=== PATIENT | male | born 1955 | race Caucasian/White ===

== ENCOUNTER 2017-09-06 13:24 | Inpatient (IN) | payer OTHER ==
--- NOTE | 2017-09-06 14:25 | C.PDOC ---
History Of Present Illness 61-year-old male, presents to the emergency department with complaints of shortness of breath. Dr Conroy sent patient to Dr Ahumada for consult, who changed patients meds from Norvasc, to Lasix, Catapres and Minoxidil. Patient is consistent short of breath, that is associated with wheezing and lower extremity pitting edema. He denies chest pain, nausea/vomiting, headache or any other associated symptoms No other complaints at this time. Time Seen by Provider: 09/06/17 14:22 Chief Complaint (Nursing): Shortness Of Breath History Per: Patient History/Exam Limitations: no limitations Past Medical History Reviewed: Historical Data, Nursing Documentation, Vital Signs Vital Signs: Last Vital Signs Temp 98 F 09/06/17 18:11 Pulse 61 09/06/17 18:11 Resp 22 09/06/17 18:11 BP 174/75 H 09/06/17 18:11 Pulse Ox 99 09/06/17 18:11 - Medical History PMH: HTN, Hypercholesterolemia Family History: States: No Known Family Hx - Social History Hx Alcohol Use: Yes Hx Substance Use: No - Immunization History Hx Tetanus Toxoid Vaccination: No Hx Influenza Vaccination: Yes Hx Pneumococcal Vaccination: No Review Of Systems Constitutional: Negative for: Fever, Chills Cardiovascular: Negative for: Chest Pain Respiratory: Positive for: Shortness of Breath, Wheezing Gastrointestinal: Negative for: Vomiting Musculoskeletal: Negative for: Back Pain Neurological: Negative for: Weakness, Numbness, Headache, Dizziness Physical Exam - Physical Exam Appears: Non-toxic, No Acute Distress Skin: Normal Color, Warm, Dry, No Rash Head: Atraumatic, Normacephalic Eye(s): bilateral: PERRL Nose: Normal Oral Mucosa: Moist Lips: Normal Appearing Neck: Normal ROM Chest: Symmetrical Cardiovascular: Rhythm Regular, No Murmur Respiratory: Decreased Breath Sounds (B/L bases), No Accessory Muscle Use, Wheezing Extremity: Normal ROM, No Deformity, No Swelling Neurological/Psych: Oriented x3, Normal Speech ED Course And Treatment - Laboratory Results Result Diagrams: 09/06/17 14:50 09/06/17 14:50 Interpretation Of ECG: Junctional rhythm. Non-specific T wave abnormalities Rate From EC O2 Sat by Pulse Oximetry: 99 (RA) Pulse Ox Interpretation: Normal - Other Rad CXR X-Ray: Viewed By Me, Read By Radiologist Interpretation: Accession No. : [id number]. Patient Name / ID : MJ DOCKERY / [id number]. Exam Date : 09/06/2017 14:48:56 ( Approved ). Study Comment : Sex / Age : M / 61Y. Creator : Kayode Blas MD. Dictator : Motorcyles Final Inspector : Manager Emergency : Kayode Blas MD. Approver2 : Report Date : 09/06/2017 15:37:09. My Comment : . HISTORY: SOB. COMPARISON: No prior. TECHNIQUE: Chest PA and lateral. FINDINGS: LUNGS: The central pulmonary vasculature is increased. There is small to medium size right-sided effusion presumably associated with atelectasis and/or infiltrate. Minimal left basilar atelectasis and small left effusion. . Collectively findings are consistent with mild pulmonary edema/CHF. PLEURA: As above. . No pneumothorax apparent. CARDIOVASCULAR: Heart size is within range of normal. OSSEOUS STRUCTURES: No significant abnormalities. VISUALIZED UPPER ABDOMEN: Normal. OTHER FINDINGS: None. IMPRESSION: The central pulmonary vasculature is increased. There is small to medium size right-sided effusion presumably associated with atelectasis and/or infiltrate. Minimal left basilar atelectasis and small left effusion. . Collectively findings are consistent with mild pulmonary edema/CHF Progress Note: Bloodwork, EKG, Chest X-Ray and UA ordered and reviewed. case was d/w who accepted patient to [facility] for an admission. Disposition - Disposition Disposition: HOSPITALIZED Disposition Time: 16:17 Condition: FAIR - Clinical Impression Clinical Impression: CHF (congestive heart failure), Pulmonary edema - Scribe Statement The provider has reviewed the documentation as recorded by the Scribe (Edith Salazar) All medical record entries made by the Scribe were at my direction and personally dictated by me. I have reviewed the chart and agree that the record accurately reflects my personal performance of the history, physical exam, medical decision making, and the department course for this patient. I have also personally directed, reviewed, and agree with the discharge instructions and disposition. Decision To Admit - Pt Status Changed To: Hospital Disposition Of: Inpatient - Admit Certification Admit to Inpatient:: After my assessment, the patient will require hospitalization for at least two midnights. This is because of the severity of symptoms shown, intensity of services needed, and/or the medical risk in this patient being treated as an outpatient. - InPatient: Physician Admission Certification: I certify that this patient requires 2 or more midnights of care for the following reason:: Patient with new oncet CHF abd pulmonary edema will need cardiac work up and will need more than 2 days of hospitalization. - . Bed Request Type: Telemetry Patient Diagnosis: CHF (congestive heart failure), Pulmonary edema
[2017-09-06 14:56] LABS: BASO % 0.3 % (0.0-2.0); EOS # 0.3 K/uL (0.0-0.7); EOS % 5.1 % (0.0-4.0); HEMOGLOBIN 11.8 g/dL (12.0-18.0); LYMPH # 1.4 K/uL (1.0-4.3); LYMPH % 21.6 % (20.0-40.0); MEAN CELL VOLUME 80.9 fL (80.0-94.0); MEAN CORPUSCULAR HEMOGLOBIN 27.4 pg (27.0-31.0); MEAN CORPUSCULAR HGB CONC 33.9 g/dL (33.0-37.0); MEAN PLATELET VOLUME 11.3 fL (7.2-11.7); MONO # 0.7 K/uL (0.0-0.8); MONO % 10.6 % (0.0-10.0); NEUT # 3.9 K/uL (1.8-7.0); NEUT % 62.4 % (50.0-75.0); RBC 4.29 Mil/uL (4.40-5.90); RED CELL DISTRIBUTION WIDTH 15.8 % (11.5-14.5); WHITE BLOOD COUNT 6.3 K/uL (4.8-10.8)
[2017-09-06 15:04] LABS: INR 1.4; PROTHROMBIN TIME 14.8 SECONDS (9.7-12.2)
[2017-09-06 15:17] LABS: ALB/GLOB RATIO 0.9 (1.0-2.1); ALBUMIN 3.2 g/dL (3.5-5.0); ALT/SGPT 74 U/L (21-72); AST/SGOT 87 U/L (17-59); BLOOD UREA NITROGEN 18 mg/dL (9-20); CALCIUM 8.7 mg/dl (8.6-10.4); GFR AFRICAN-AMERICAN > 60; GFR NON-AFRICAN AMERICAN 56
[2017-09-06 15:27] LABS: SQUAMOUS EPITHIAL < 1 /hpf (0-5); URINE BACTERIA RARE (<OCC); URINE BILIRUBIN NEGATIVE (NEGATIVE); URINE BLOOD NEGATIVE (NEGATIVE); URINE CLARITY Clear (Clear); URINE COLOR Yellow (YELLOW); URINE GLUCOSE (UA) NORMAL (Normal); URINE LEUKOCYTE ESTERASE NEG Leu/uL (Negative); URINE PROTEIN 2+ mg/dL (NEGATIVE); URINE UROBILINOGEN NORMAL mg/dL (0.2-1.0)
[2017-09-06 15:31] LABS: CK-MB 4.91 ng/mL (0.0-3.38)
--- NOTE | 2017-09-06 15:38 | RAD ---
HISTORY: SOB COMPARISON: No prior. TECHNIQUE: Chest PA and lateral FINDINGS: LUNGS: The central pulmonary vasculature is increased. There is small to medium size right-sided effusion presumably associated with atelectasis and/or infiltrate. Minimal left basilar atelectasis and small left effusion. . Collectively findings are consistent with mild pulmonary edema/CHF PLEURA: As above. . No pneumothorax apparent. CARDIOVASCULAR: Heart size is within range of normal OSSEOUS STRUCTURES: No significant abnormalities. VISUALIZED UPPER ABDOMEN: Normal. OTHER FINDINGS: None. IMPRESSION: The central pulmonary vasculature is increased. There is small to medium size right-sided effusion presumably associated with atelectasis and/or infiltrate. Minimal left basilar atelectasis and small left effusion. . Collectively findings are consistent with mild pulmonary edema/CHF
--- NOTE | 2017-09-06 16:52 | CP.PCM.HP ---
History of Present Illness - History of Present Illness History of Present Illness: CC: SOB HPI 61-year-old male, presents to the emergency department with complaints of shortness of breath. Patient started having leg swelling. Dr. Conroy sent patient to Dr. Ahumada for consult who changed patients medications from norvasc to Minoxidil. For one week patient had leg swelling, patient was given furosemide and catapres. Patient states he does not have difficulty urinating. Patient states he can walk a few feet but then gets short of breath going to the bathroom. Patient states he called Dr. Ahumada to update medication but Patient is consistent short of breath, that is associated with wheezing and lower extremity pitting edema. He denies chest pain, nausea/vomiting, headache or any other associated symptoms No other complaints at this time. Patient was taking aspirin, plavix for his CVA. PMH: history of CVA (1 month ago in [place] in [place], [place]), DM, HTN surgical: none Social Hx: chews tobacco and stopped after his stroke 1 month ago, never smoked , social ETOH Allergies: NKDA PMD: Dr. Conroy full code son is the decision maker in case Patient cannot make decisions Present on Admission - Present on Admission Any Indicators Present on Admission: No History of DVT/PE: No History of Uncontrolled Diabetes: No Urinary Catheter: No Decubitus Ulcer Present: No Review of Systems - Review of Systems All systems: reviewed and no additional remarkable complaints except - Constitutional Constitutional: absent: Anorexia, Chills, Daytime Sleepiness - EENT Eyes: absent: Blind Spots, Blurred Vision, Change in Vision Past Patient History - Past Social History Smoking Status: Never Smoked - CARDIAC Hx Hypercholesterolemia: Yes Hx Hypertension: Yes - ENDOCRINE/METABOLIC Hx Diabetes Mellitus Type 2: Yes - PSYCHIATRIC Hx Substance Use: No - SURGICAL HISTORY Hx Surgeries: No Meds Allergies/Adverse Reactions: Allergies Allergy/AdvReac Type Severity Reaction Status Date / Time No Known Allergies Allergy Verified 09/06/17 13:46 Physical Exam - Constitutional Appears: Non-toxic, No Acute Distress - Head Exam Head Exam: ATRAUMATIC, NORMAL INSPECTION, NORMOCEPHALIC - Eye Exam Eye Exam: EOMI, Normal appearance - ENT Exam ENT Exam: Mucous Membranes Moist, Normal Oropharynx - Neck Exam Neck exam: Positive for: Full Rom. Negative for: Lymphadenopathy, Tenderness, Thyromegaly - Respiratory Exam Respiratory Exam: Decreased Breath Sounds (on the right), NORMAL BREATHING PATTERN. absent: Clear to Auscultation Bilateral, Rales - Cardiovascular Exam Cardiovascular Exam: REGULAR RHYTHM, +S1, +S2, Systolic Murmur. absent: Bradycardia, Tachycardia - GI/Abdominal Exam GI & Abdominal Exam: Normal Bowel Sounds, Soft. absent: Organomegaly, Rebound, Rigid, Tenderness - Extremities Exam Extremities exam: Positive for: full ROM, normal capillary refill, normal inspection, pedal edema (2+ pitting edema bilaterally ), pedal pulses present. Negative for: tenderness - Back Exam Back exam: FULL ROM, NORMAL INSPECTION - Neurological Exam Neurological exam: Alert, CN II-XII Intact, Normal Gait, Oriented x3 - Psychiatric Exam Psychiatric exam: Normal Affect, Normal Mood - Skin Skin Exam: Dry, Intact, Normal Color, Warm Results - Vital Signs Recent Vital Signs: Last Vital Signs Temp 98.1 F 09/06/17 13:43 Pulse 59 L 09/06/17 16:44 Resp 16 09/06/17 16:44 BP 192/84 H 09/06/17 16:44 Pulse Ox 99 09/06/17 16:44 - Labs Result Diagrams: 09/06/17 14:50 09/06/17 14:50 Labs: Laboratory Results - last 24 hr 09/06/17 09/06/17 09/06/17 14:50 14:50 14:50 WBC 6.3 RBC 4.29 L Hgb 11.8 L Hct 34.7 L MCV 80.9 MCH 27.4 MCHC 33.9 RDW 15.8 H Plt Count 216 MPV 11.3 Neut % (Auto) 62.4 Lymph % (Auto) 21.6 Gilchrist % (Auto) 10.6 H Eos % (Auto) 5.1 H Baso % (Auto) 0.3 Neut # (Auto) 3.9 Lymph # (Auto) 1.4 Gilchrist # (Auto) 0.7 Eos # (Auto) 0.3 Baso # (Auto) 0.0 PT 14.8 H INR 1.4 APTT 37 H D-Dimer, Quantitative 694 H Sodium 143 Potassium 3.9 Chloride 107 Carbon Dioxide 24 Anion Gap 15 BUN 18 Creatinine 1.3 Est GFR ( Amer) > 60 Est GFR (Non-Af Amer) 56 Random Glucose 97 Calcium 8.7 Total Bilirubin 0.4 AST 87 H ALT 74 H Alkaline Phosphatase 62 Total Creatine Kinase 490 H CK-MB (Mass) 4.91 H Troponin I 0.0540 Total Protein 6.7 Albumin 3.2 L Globulin 3.5 Albumin/Globulin Ratio 0.9 L Urine Color Urine Clarity Urine pH Ur Specific Statham Urine Protein Urine Glucose (UA) Urine Ketones Urine Blood Urine Nitrate Urine Bilirubin Urine Urobilinogen Ur Leukocyte Esterase Urine WBC (Auto) Urine RBC (Auto) Ur Squamous Epith Cells Urine Bacteria 09/06/17 15:18 WBC RBC Hgb Hct MCV MCH MCHC RDW Plt Count MPV Neut % (Auto) Lymph % (Auto) Gilchrist % (Auto) Eos % (Auto) Baso % (Auto) Neut # (Auto) Lymph # (Auto) Gilchrist # (Auto) Eos # (Auto) Baso # (Auto) PT INR APTT D-Dimer, Quantitative Sodium Potassium Chloride Carbon Dioxide Anion Gap BUN Creatinine Est GFR ( Amer) Est GFR (Non-Af Amer) Random Glucose Calcium Total Bilirubin AST ALT Alkaline Phosphatase Total Creatine Kinase CK-MB (Mass) Troponin I Total Protein Albumin Globulin Albumin/Globulin Ratio Urine Color Yellow Urine Clarity Clear Urine pH 5.0 Ur Specific Statham 1.006 Urine Protein 2+ H Urine Glucose (UA) Normal Urine Ketones Negative Urine Blood Negative Urine Nitrate Negative Urine Bilirubin Negative Urine Urobilinogen Normal Ur Leukocyte Esterase Neg Urine WBC (Auto) < 1 Urine RBC (Auto) < 1 Ur Squamous Epith Cells < 1 Urine Bacteria Rare Assessment & Plan - Assessment and Plan (Free Text) Assessment: 1) possible heart failure Lasix 40mg IV Q12H starting 6am 09/09/17 hold beta blockers due to acute nature f/u 2D echo head of bed 45 degrees daily weight strict input and output Troponin I at 09/06 2100 and 09/07 0300 Cardio Consult: Dr. Emery Galicia 2) uncontrolled HTN lasix 40mg IV Q12H starting 6am 09/07/17 lisinopril 100 mg PO QD 10 am clonidine 0.3 mg PO Q8H 09/06 starting 8am and 8pm Hydralazine 10 mg PO QID starting at 10pm 09/06 3) elevated D-dimer bilateral venous duplex LE CT angio Chest: no PE. Bilateral pleural effusions right larger than left. compressive atelectasis right lower lobe. 4) right sided medium pleural effusion monitor for now discontinue minoxidil IR Dr. Dennison for drainage 5) Elevated LFTs f/u hepatitis panel f/u HIV gen 4 6) anemia f/u occult stool f/u iron studies f/u peripheral smear f/u homocysteine f/u antiparietal cell ab f/u anti intrinsic factor ab f/u direct bilirubin f/u reticulocyte f/u methylmalonic acid f/u haptglobin f/u LDH 7) Diabetes hold PO home medication low dose ISS ACHS hypoglycemic protocol hgb A1c in AM 8) hx CVA about a month ago discussed with Dr. Marlon Mata DO PGY1 - Date & Time Date: 09/06/17 Time: 18:39
[2017-09-06] MEDS ORDERED: Iodixanol 320 MG/ML 100 ML BOTTLE IV ONE (17:08)
[2017-09-06] MEDS ORDERED: Dextrose 50% SYRINGE Inj (50 ml) IV PRN (17:58)
[2017-09-06] MEDS ORDERED: Glucagon Recombinant 1 mg Inj IM PRN (17:58)
--- NOTE | 2017-09-06 18:13 | CT ---
PROCEDURE: CT Chest with contrast (Pulmonary Angiogram) HISTORY: Elevated D- Dimer. SOB COMPARISON: September 06, 2017. Chest radiograph TECHNIQUE: Axial computed tomography images were obtained of the chest in the pulmonary arterial phase of enhancement. Coronal and sagittal reformatted images were created and reviewed. Intravenous contrast dose: 100 cc Visipaque 320 Mean Hounsfield unit values in the main pulmonary artery: 303.56 Radiation dose: Total exam DLP = 503.05 mGy-cm. This CT exam was performed using one or more of the following dose reduction techniques: Automated exposure control, adjustment of the mA and/or kV according to patient size, and/or use of iterative reconstruction technique. FINDINGS: PULMONARY ARTERIES: Unremarkable. No pulmonary embolism. AORTA: No acute findings. No thoracic aortic aneurysm. LUNGS: Unremarkable. No nodule, mass or pulmonary consolidation. PLEURAL SPACES: Right pleural effusion resulting in compressive atelectasis primarily affecting right lower lobe. Trace and partially loculated left pleural effusion. No suspicious pulmonary nodules or masses identified. HEART: Unremarkable. No cardiomegaly. No significant pericardial effusion. LYMPH NODES: No lymphadenopathy. BONES, CHEST WALL: Unremarkable. No fracture or destructive lesion OTHER FINDINGS: Unremarkable. IMPRESSION: Unremarkable CT pulmonary angiogram. No pulmonary embolus. Bilateral pleural effusions right larger than left. Compressive atelectasis right lower lobe.
[2017-09-06] MEDS: (Novolin R) Insulin Human Regular 100 units/ml vial SC SCH (21:48)
[2017-09-07 04:25] LABS: BASO # 0.1 K/uL (0.0-0.2); EOS # 0.3 K/uL (0.0-0.7); EOS % 6.1 % (0.0-4.0); HEMOGLOBIN 10.5 g/dL (12.0-18.0); LYMPH # 1.6 K/uL (1.0-4.3); LYMPH % 29.3 % (20.0-40.0); MEAN CELL VOLUME 80.6 fL (80.0-94.0); MEAN CORPUSCULAR HEMOGLOBIN 27.1 pg (27.0-31.0); MEAN CORPUSCULAR HGB CONC 33.6 g/dL (33.0-37.0); MEAN PLATELET VOLUME 11.3 fL (7.2-11.7); MONO # 0.7 K/uL (0.0-0.8); MONO % 12.5 % (0.0-10.0); NEUT # 2.9 K/uL (1.8-7.0); NEUT % 51.1 % (50.0-75.0); RBC 3.88 Mil/uL (4.40-5.90); RED CELL DISTRIBUTION WIDTH 15.2 % (11.5-14.5); WHITE BLOOD COUNT 5.6 K/uL (4.8-10.8)
[2017-09-07 04:43] LABS: IRON 41 ug/dL (49-181)
[2017-09-07 04:46] LABS: ALB/GLOB RATIO 0.9 (1.0-2.1); ALBUMIN 2.9 g/dL (3.5-5.0); BILIRUBIN,DIRECT 0.2 mg/dL (0.0-0.4); CALCIUM 8.6 mg/dl (8.6-10.4)
[2017-09-07 04:52] LABS: % IRON SATURATION 15 (20-55); TOTAL IRON BINDING CAPACITY 274 ug/dL (250-450)
[2017-09-07 04:56] LABS: TROPONIN I 0.066 ng/mL (0.00-0.120)
[2017-09-07 05:19] LABS: FERRITIN 50.4 ng/mL
[2017-09-07 05:23] LABS: HEPATITIS B SURFACE AG Negative (NEGATIVE)
[2017-09-07 05:29] LABS: HEPATITIS A IGM NEGATIVE (NEGATIVE); HEPATITIS B CORE AB NEGATIVE (NEGATIVE)
[2017-09-07 05:41] LABS: HEPATITIS C ANTIBODY NEGATIVE (NEGATIVE)
--- NOTE | 2017-09-07 07:07 | CP.PCM.PN ---
<Robyn Mata - Last Filed: 09/07/17 16:40> Subjective - Date & Time of Evaluation Date of Evaluation: 09/07/17 Time of Evaluation: 07:07 - Subjective Subjective: Progress note for Dr. Mason Patient seen and examined at bedside. Patient short of breath overnight, was given lasix. Patient states he feels much better and is aware he is going for thoracentesis. Patient had 600 cc of fluid removed during thoracentesis. Patient tolerated the procedure well. Patient continues to have high blood pressure. medicine team is currently adjusting medications. Objective - Vital Signs/Intake and Output Vital Signs (last 24 hours): Temp Pulse Resp BP Pulse Ox 98.0 F 74 20 175/85 H 98 09/07/17 00:00 09/07/17 00:31 09/07/17 00:00 09/07/17 06:10 09/07/17 00:00 Intake and Output: 09/07/17 09/07/17 06:59 18:59 Intake Total 850 Output Total 1000 Balance -150 - Medications Medications: Current Medications Aspirin (Aspirin Chewable) 81 mg PO DAILY [facility] Clonidine HCl (Catapres) 0.3 mg PO Q12H [facility] Last Admin: 09/06/17 19:24 Dose: 0.3 mg Clopidogrel Bisulfate (Plavix) 75 mg PO DAILY [facility] Dextrose (Dextrose 50% Inj) 0 ml IV STAT PRN; Protocol PRN Reason: Hypoglycemia Protocol Dextrose (Glutose 15) 0 gm PO ONCE PRN; Protocol PRN Reason: Hypoglycemia Protocol Furosemide (Lasix) 40 mg IVP Q12H [facility] Last Admin: 09/07/17 06:10 Dose: 40 mg Glucagon (Glucagen Diagnostic Kit) 0 mg IM STAT PRN; Protocol PRN Reason: Hypoglycemia Protocol Heparin Sodium (Porcine) (Heparin) 5,000 units SC Q8 [facility] Last Admin: 09/07/17 06:10 Dose: 5,000 units Hydralazine HCl (Apresoline) 10 mg PO QID [facility] Last Admin: 09/06/17 22:12 Dose: 10 mg Dextrose (Dextrose 5% In Water 1000 Ml) 1,000 mls @ 0 mls/hr IV .Q0M PRN; Protocol; Per Protocol PRN Reason: Hypoglycemia Protocol Insulin Human Regular (Novolin R) 0 unit SC ACHS [facility] PRN Reason: Protocol Last Admin: 09/06/17 21:48 Dose: Not Given Lisinopril (Zestril) 10 mg PO DAILY [facility] Last Admin: 09/06/17 16:43 Dose: 10 mg Rosuvastatin Calcium (Crestor) 5 mg PO HS [facility] Last Admin: 09/06/17 21:50 Dose: 5 mg - Labs Labs: 09/07/17 04:15 09/07/17 04:15 PT 14.8 SECONDS (9.7-12.2) H 09/06/17 14:50 INR 1.4 09/06/17 14:50 APTT 37 SECONDS (21-34) H 09/06/17 14:50 - Additional Findings Additional findings: - Constitutional Appears: Non-toxic, No Acute Distress - Head Exam Head Exam: ATRAUMATIC, NORMAL INSPECTION, NORMOCEPHALIC - Eye Exam Eye Exam: EOMI, Normal appearance - ENT Exam ENT Exam: Mucous Membranes Moist, Normal Oropharynx - Neck Exam Neck exam: Positive for: Full Rom. Negative for: Lymphadenopathy, Tenderness, Thyromegaly - Respiratory Exam Respiratory Exam: Decreased Breath Sounds (on the right), NORMAL BREATHING PATTERN. absent: Clear to Auscultation Bilateral, Rales - Cardiovascular Exam Cardiovascular Exam: REGULAR RHYTHM, +S1, +S2, Systolic Murmur. absent: Bradycardia, Tachycardia - GI/Abdominal Exam GI & Abdominal Exam: Normal Bowel Sounds, Soft. absent: Organomegaly, Rebound, Rigid, Tenderness - Extremities Exam Extremities exam: Positive for: full ROM, normal capillary refill, normal inspection, pedal edema (2+ pitting edema bilaterally ), pedal pulses present. Negative for: tenderness - Back Exam Back exam: FULL ROM, NORMAL INSPECTION - Neurological Exam Neurological exam: Alert, CN II-XII Intact, Normal Gait, Oriented x3 - Psychiatric Exam Psychiatric exam: Normal Affect, Normal Mood - Skin Skin Exam: Dry, Intact, Normal Color, Warm Assessment and Plan - Assessment and Plan (Free Text) Assessment: 1) possible heart failure Lasix 40mg IV Q12H starting 6am 09/09/17 hold beta blockers due to acute nature f/u 2D echo head of bed 45 degrees daily weight strict input and output Troponin I at 09/06 2100 and 09/07 0300 Cardio Consult: Dr. Emery Galicia 2) uncontrolled HTN lasix 40mg IV Q12H starting 6am 09/07/17 lisinopril 10 mg PO QD 10 am clonidine 0.3 mg PO Q8H 09/06 starting 8am and 8pm Hydralazine 50 mg PO TID 09/08 3) elevated D-dimer bilateral venous duplex LE CT angio Chest: no PE. Bilateral pleural effusions right larger than left. compressive atelectasis right lower lobe. 4) right sided medium pleural effusion monitor for now discontinue minoxidil IR Dr. Dennison for drainage 600cc drained. specimens sent for cytology, total protein and LDH 5) Elevated LFTs f/u hepatitis panel f/u HIV gen 4 6) anemia f/u occult stool f/u iron studies f/u peripheral smear f/u homocysteine f/u antiparietal cell ab f/u anti intrinsic factor ab f/u direct bilirubin f/u reticulocyte f/u methylmalonic acid f/u haptglobin f/u LDH patient placed on feosol 325 mg 09/07 7) Diabetes, controlled hold PO home medication low dose ISS ACHS hypoglycemic protocol hgb A1c in AM 7.0 8) hx CVA about a month ago plavix asa 81 mg POQD prophylaxis scds Robyn Mata DO PGY1 discussed with Dr. Marlon Mata DO PGY1 <Riley Mason - Last Filed: 09/07/17 19:58> Objective - Vital Signs/Intake and Output Vital Signs (last 24 hours): Temp Pulse Resp BP Pulse Ox 97.9 F 52 L 22 178/71 H 99 09/07/17 16:00 09/07/17 16:00 09/07/17 16:00 09/07/17 19:17 09/07/17 16:00 Intake and Output: 09/07/17 09/08/17 18:59 06:59 Intake Total 300 Balance 300 - Medications Medications: Current Medications Aspirin (Aspirin Chewable) 81 mg PO DAILY [facility] Clonidine HCl (Catapres) 0.3 mg PO TID [facility] Last Admin: 09/07/17 18:55 Dose: 0.3 mg Clopidogrel Bisulfate (Plavix) 75 mg PO DAILY [facility] Dextrose (Dextrose 50% Inj) 0 ml IV STAT PRN; Protocol PRN Reason: Hypoglycemia Protocol Dextrose (Glutose 15) 0 gm PO ONCE PRN; Protocol PRN Reason: Hypoglycemia Protocol Ferrous Sulfate (Feosol) 325 mg PO DAILY [facility] Last Admin: 09/07/17 09:48 Dose: 325 mg Furosemide (Lasix) 40 mg IVP Q12H [facility] Last Admin: 09/07/17 19:17 Dose: 40 mg Glucagon (Glucagen Diagnostic Kit) 0 mg IM STAT PRN; Protocol PRN Reason: Hypoglycemia Protocol Heparin Sodium (Porcine) (Heparin) 5,000 units SC Q8 [facility] Last Admin: 09/07/17 14:11 Dose: Not Given Hydralazine HCl (Apresoline) 50 mg PO TID [facility] Last Admin: 09/07/17 18:55 Dose: 50 mg Dextrose (Dextrose 5% In Water 1000 Ml) 1,000 mls @ 0 mls/hr IV .Q0M PRN; Protocol; Per Protocol PRN Reason: Hypoglycemia Protocol Insulin Human Regular (Novolin R) 0 unit SC ACHS [facility] PRN Reason: Protocol Last Admin: 09/07/17 18:57 Dose: 2 unit Labetalol HCl (Trandate) 100 mg PO BID [facility] Last Admin: 09/07/17 18:56 Dose: 100 mg Lisinopril (Zestril) 10 mg PO DAILY [facility] Last Admin: 09/07/17 09:48 Dose: 10 mg Rosuvastatin Calcium (Crestor) 5 mg PO HS [facility] Last Admin: 09/06/17 21:50 Dose: 5 mg - Labs Labs: 09/07/17 04:15 09/07/17 04:15 PT 14.8 SECONDS (9.7-12.2) H 09/06/17 14:50 INR 1.4 09/06/17 14:50 APTT 37 SECONDS (21-34) H 09/06/17 14:50 Attending/Attestation - Attestation I have personally seen and examined this patient.: Yes I have fully participated in the care of the patient.: Yes I have reviewed all pertinent clinical information, including history, physical exam and plan: Yes Notes (Text): 09/07/17 19:54 Patient was seen and examined at 9 AM Exam, assessment and plan were gone over with the resident. F/U 2D Echocardiogram Venous Doppler of LE are negative for DVTs. Therefore will add SCDs. F/U Pleural Fluid studies S/P Thoracentesis of Right Pleural Fluid Ferrous Sulfate 325 mg PO 1x/day added for low Iron. Patient will need outpatient Colonoscopy. F/U VMA 24 hour urine collection for workup of the still uncontrolled HTN. Nephrology Dr. Ahumada added Lobetolol 100 mg PO 2x/day and has increased Hydralazine to 50 mg PO TID. ASA 81 mg PO 1x/day and Plavix 75 mg PO 1x/day (on board for the history of CVA ) will be restarted 09/07/17 after being held today for the Thoracentesis. Riley Mason D.O.
[2017-09-07] MEDS: (Novolin R) Insulin Human Regular 100 units/ml vial SC SCH ×4 (07:49→21:28)
[2017-09-07] MEDS ORDERED: Potassium Chloride 20 mEq ER Tab PO SCH (10:00)
--- NOTE | 2017-09-07 12:05 | VASCLAB ---
PROCEDURE: Lower Extremity Venous Duplex Exam. HISTORY: Elevated D - Dimer. Edema of legs PRIORS: None. TECHNIQUE: Bilateral common femoral, femoral, popliteal and posterior tibial, peroneal and great saphenous veins were evaluated. Flow was assessed with color Doppler, compressibility, assessment of phasic flow and augmentation response. Report prepared by SYLVIA Snyder, RVT FINDINGS: RIGHT: 1. Common Femoral Vein: 1.1. Compressibility - Fully compressible: Thrombus - None : Flow - Phasic: Augmentation -Normal: Reflux - None. 2. Femoral Vein: 2.1. Compressibility - Fully compressible: Thrombus - None : Flow - Phasic: Augmentation -Normal: Reflux - None. 3. Popliteal Vein: 3.1. Compressibility - Fully compressible: Thrombus - None : Flow - Phasic: Augmentation -Normal: Reflux - None. 4. Posterior Tibial Vein: 4.1. Compressibility - Fully compressible: Thrombus - None: Flow - Phasic: Augmentation -Normal: Reflux - None. 5. Peroneal Vein: 5.1. Compressibility - Fully compressible: Thrombus - None: Flow - Phasic: Augmentation -Normal: Reflux - None. 6. Great Saphenous Vein: 6.1. Compressibility - Fully compressible: Thrombus - None: Flow - Phasic: Augmentation - Normal: Reflux - None. LEFT: 1. Common Femoral Vein: 1.1. Compressibility - Fully compressible: Thrombus - None: Flow - Phasic: Augmentation -Normal: Reflux - None. 2. Femoral Vein: 2.1. Compressibility - Fully compressible: Thrombus - None: Flow - Phasic: Augmentation -Normal: Reflux - None. 3. Popliteal Vein: 3.1. Compressibility - Fully compressible: Thrombus - None : Flow - Phasic: Augmentation -Normal: Reflux - None. 4. Posterior Tibial Vein: 4.1. Compressibility - Fully compressible: Thrombus - None: Flow - Phasic: Augmentation -Normal: Reflux - None. 5. Peroneal Vein: 5.1. Compressibility - Fully compressible: Thrombus - None: Flow - Phasic: Augmentation -Normal: Reflux - None. 6. Great Saphenous Vein: 6.1. Compressibility - Fully compressible: Thrombus - None: Flow - Phasic: Augmentation - Normal: Reflux - None. OTHER FINDINGS: Right: None significant. Left: None significant. IMPRESSION: Right: No evidence of deep or superficial vein thrombosis of the right lower extremity. Normal valve function noted of the right side. Left: No evidence of deep or superficial vein thrombosis of the left lower extremity. Normal valve function noted of the left side.
--- NOTE | 2017-09-07 14:52 | CP.PCM.CON ---
History of Present Illness - History of Present Illness History of Present Illness: 61-year-old male, presents to the emergency department with complaints of shortness of breath. Patient started having leg swelling. Recently has had uncontrolled HTN and minoxidil added to regimen.Workup for uncontrolled HTN initiated, results pending.. Has had increased leg swelling, patient was given furosemide and catapres. Patient states he does not have difficulty urinating. Patient states he can walk a few feet but then gets short of breath going to the bathroom. Patient states he called Dr. Ahumada for persistent short of breath , that is associated with wheezing and lower extremity pitting edema. He denies chest pain, nausea/vomiting, headache or any other associated symptoms No other complaints at this time. Advised to go to ED. Patient was taking aspirin, plavix for his CVA. PMH: history of CVA (1 month ago in [place] in [place], [place]), DM, HTN surgical: none Social Hx: chews tobacco and stopped after his stroke 1 month ago, never smoked , social ETOH Allergies: NKDA Review of Systems - Constitutional Constitutional: Lethargy, Weight Gain, Weakness - EENT Eyes: absent: As Per HPI, Blind Spots, Blurred Vision, Change in Vision, Decreased Night Vision, Diplopia, Discharge, Dry Eye, Exophthalmos, Floaters, Irritation, Itchy Eyes, Loss of Peripheral Vision, Pain, Photophobia, Requires Corrective Lenses, Sees Flashes, Spots in Vision, Tunnel Vision, Other Visual Disturbances, Loss of Vision, Other Ears: absent: As Per HPI, Decreased Hearing, Ear Discharge, Ear Pain, Tinnitus, Abnormal Hearing, Disequilibrium, Dizziness, Other Nose/Mouth/Throat: absent: As Per HPI, Epistaxis, Nasal Congestion, Nasal Discharge, Nasal Obstruction, Nasal Trauma, Nose Pain, Post Nasal Drip, Sinus Pain, Sinus Pressure, Bleeding Gums, Change in Voice, Dental Pain, Dry Mouth, Dysphagia, Halitosis, Hoarsness, Lip Swelling, Mouth Lesions, Mouth Pain, Odynophagia, Sore Throat, Throat Swelling, Tongue Swelling, Facial Pain, Neck Pain, Neck Mass, Other - Cardiovascular Cardiovascular: Dyspnea on Exertion, Lightheadedness, Pedal Edema - Respiratory Respiratory: Cough, Dyspnea on Exertion - Gastrointestinal Gastrointestinal: Dyspepsia, Nausea - Musculoskeletal Musculoskeletal: Muscle Cramps, Myalgias - Neurological Neurological: Weakness Past Patient History - Past Medical History & Family History Past Medical History?: Yes Past Family History: Reviewed and not pertinent - Past Social History Smoking Status: Never Smoked Chewing Tobacco Use: No Cigar Use: No Alcohol: None Drugs: Denies Home Situation {Lives}: With Family - CARDIAC Hx Hypercholesterolemia: Yes Hx Hypertension: Yes - PULMONARY Hx Respiratory Disorders: No - NEUROLOGICAL Hx Neurological Disorder: Yes HX Cerebrovascular Accident: Yes (07/26/17) - HEENT Hx HEENT Problems: No - RENAL Hx Chronic Kidney Disease: No - ENDOCRINE/METABOLIC Hx Diabetes Mellitus Type 2: Yes - HEMATOLOGICAL/ONCOLOGICAL Hx Blood Disorders: No - INTEGUMENTARY Hx Dermatological Problems: No - MUSCULOSKELETAL/RHEUMATOLOGICAL Hx Musculoskeletal Disorders: Yes Hx Falls: Yes - GASTROINTESTINAL Hx Gastrointestinal Disorders: No - GENITOURINARY/GYNECOLOGICAL Hx Genitourinary Disorders: No - PSYCHIATRIC Hx Substance Use: No - SURGICAL HISTORY Hx Surgeries: No - ANESTHESIA Hx Anesthesia: No Hx Anesthesia Reactions: No Hx Malignant Hyperthermia: No Has any member of the family had a problem w/ anesthesia?: No Meds Allergies/Adverse Reactions: Allergies Allergy/AdvReac Type Severity Reaction Status Date / Time No Known Allergies Allergy Verified 09/06/17 13:46 - Medications Medications: Current Medications Clonidine HCl (Catapres) 0.3 mg PO Q12H [facility] Last Admin: 09/07/17 07:53 Dose: 0.3 mg Dextrose (Dextrose 50% Inj) 0 ml IV STAT PRN; Protocol PRN Reason: Hypoglycemia Protocol Dextrose (Glutose 15) 0 gm PO ONCE PRN; Protocol PRN Reason: Hypoglycemia Protocol Ferrous Sulfate (Feosol) 325 mg PO DAILY [facility] Last Admin: 09/07/17 09:48 Dose: 325 mg Furosemide (Lasix) 40 mg IVP Q12H [facility] Last Admin: 09/07/17 06:10 Dose: 40 mg Glucagon (Glucagen Diagnostic Kit) 0 mg IM STAT PRN; Protocol PRN Reason: Hypoglycemia Protocol Heparin Sodium (Porcine) (Heparin) 5,000 units SC Q8 [facility] Last Admin: 09/07/17 14:11 Dose: Not Given Hydralazine HCl (Apresoline) 25 mg PO QID [facility] Last Admin: 09/07/17 14:05 Dose: 25 mg Dextrose (Dextrose 5% In Water 1000 Ml) 1,000 mls @ 0 mls/hr IV .Q0M PRN; Protocol; Per Protocol PRN Reason: Hypoglycemia Protocol Insulin Human Regular (Novolin R) 0 unit SC ACHS [facility] PRN Reason: Protocol Last Admin: 09/07/17 12:01 Dose: 2 unit Lisinopril (Zestril) 10 mg PO DAILY [facility] Last Admin: 09/07/17 09:48 Dose: 10 mg Potassium Chloride (K-Dur 20 Meq Er Tab) 40 meq PO DAILY [facility] Last Admin: 09/07/17 09:48 Dose: 40 meq Rosuvastatin Calcium (Crestor) 5 mg PO HS [facility] Last Admin: 09/06/17 21:50 Dose: 5 mg Physical Exam - Constitutional Appears: No Acute Distress, Chronically Ill - Head Exam Head Exam: ATRAUMATIC, NORMAL INSPECTION - Eye Exam Eye Exam: EOMI, Normal appearance - Neck Exam Neck exam: Positive for: Normal Inspection. Negative for: Tenderness - Respiratory Exam Respiratory Exam: Decreased Breath Sounds, NORMAL BREATHING PATTERN - Cardiovascular Exam Cardiovascular Exam: REGULAR RHYTHM, +S1 - GI/Abdominal Exam GI & Abdominal Exam: Soft. absent: Tenderness - Extremities Exam Extremities exam: Positive for: pedal edema, tenderness - Neurological Exam Neurological exam: CN II-XII Intact, Oriented x3 - Skin Skin Exam: Dry, Warm Results - Vital Signs Recent Vital Signs: Last Vital Signs Temp 97.5 F L 09/07/17 07:05 Pulse 57 L 09/07/17 14:06 Resp 20 09/07/17 07:05 BP 182/87 H 09/07/17 14:06 Pulse Ox 98 09/07/17 07:05 - Labs Result Diagrams: 09/07/17 04:15 09/07/17 04:15 Labs: Laboratory Results - last 24 hr 09/06/17 09/06/17 09/06/17 14:50 14:50 14:50 WBC 6.3 RBC 4.29 L Hgb 11.8 L Hct 34.7 L MCV 80.9 MCH 27.4 MCHC 33.9 RDW 15.8 H Plt Count 216 MPV 11.3 Neut % (Auto) 62.4 Lymph % (Auto) 21.6 [place] % (Auto) 10.6 H Eos % (Auto) 5.1 H Baso % (Auto) 0.3 Neut # (Auto) 3.9 Lymph # (Auto) 1.4 [place] # (Auto) 0.7 Eos # (Auto) 0.3 Baso # (Auto) 0.0 Retic Count Haptoglobin PT 14.8 H INR 1.4 APTT 37 H D-Dimer, Quantitative 694 H Sodium 143 Potassium 3.9 Chloride 107 Carbon Dioxide 24 Anion Gap 15 BUN 18 Creatinine 1.3 Est GFR ( Amer) > 60 Est GFR (Non-Af Amer) 56 POC Glucose (mg/dL) Random Glucose 97 Hemoglobin A1c Calcium 8.7 Phosphorus Magnesium Iron TIBC % Saturation Ferritin Total Bilirubin 0.4 Direct Bilirubin AST 87 H ALT 74 H Alkaline Phosphatase 62 Lactate Dehydrogenase Total Creatine Kinase 490 H CK-MB (Mass) 4.91 H Troponin I 0.0540 NT-Pro-B Natriuret Pep Total Protein 6.7 Albumin 3.2 L Globulin 3.5 Albumin/Globulin Ratio 0.9 L Triglycerides Cholesterol LDL Cholesterol Direct HDL Cholesterol Homocysteine Urine Color Urine Clarity Urine pH Ur Specific [place] Urine Protein Urine Glucose (UA) Urine Ketones Urine Blood Urine Nitrate Urine Bilirubin Urine Urobilinogen Ur Leukocyte Esterase Urine WBC (Auto) Urine RBC (Auto) Ur Squamous Epith Cells Urine Bacteria Stool Occult Blood Hepatitis A IgM Ab Hep Bs Antigen Hep B Core IgM Ab Hepatitis C Antibody 09/06/17 09/06/17 09/06/17 15:18 19:49 20:50 WBC RBC Hgb Hct MCV MCH MCHC RDW Plt Count MPV Neut % (Auto) Lymph % (Auto) [place] % (Auto) Eos % (Auto) Baso % (Auto) Neut # (Auto) Lymph # (Auto) [place] # (Auto) Eos # (Auto) Baso # (Auto) Retic Count Haptoglobin PT INR APTT D-Dimer, Quantitative Sodium Potassium Chloride Carbon Dioxide Anion Gap BUN Creatinine Est GFR ( Amer) Est GFR (Non-Af Amer) POC Glucose (mg/dL) Random Glucose Hemoglobin A1c Calcium Phosphorus Magnesium Iron TIBC % Saturation Ferritin Total Bilirubin Direct Bilirubin AST ALT Alkaline Phosphatase Lactate Dehydrogenase Total Creatine Kinase CK-MB (Mass) Troponin I 0.0700 NT-Pro-B Natriuret Pep Total Protein Albumin Globulin Albumin/Globulin Ratio Triglycerides Cholesterol LDL Cholesterol Direct HDL Cholesterol Homocysteine Urine Color Yellow Urine Clarity Clear Urine pH 5.0 Ur Specific [place] 1.006 Urine Protein 2+ H Urine Glucose (UA) Normal Urine Ketones Negative Urine Blood Negative Urine Nitrate Negative Urine Bilirubin Negative Urine Urobilinogen Normal Ur Leukocyte Esterase Neg Urine WBC (Auto) < 1 Urine RBC (Auto) < 1 Ur Squamous Epith Cells < 1 Urine Bacteria Rare Stool Occult Blood Negative Hepatitis A IgM Ab Hep Bs Antigen Hep B Core IgM Ab Hepatitis C Antibody 09/06/17 09/06/17 09/07/17 20:50 21:24 04:00 WBC RBC Hgb Hct MCV MCH MCHC RDW Plt Count MPV Neut % (Auto) Lymph % (Auto) [place] % (Auto) Eos % (Auto) Baso % (Auto) Neut # (Auto) Lymph # (Auto) Aurora # (Auto) Eos # (Auto) Baso # (Auto) Retic Count Haptoglobin PT INR APTT D-Dimer, Quantitative Sodium Potassium Chloride Carbon Dioxide Anion Gap BUN Creatinine Est GFR ( Amer) Est GFR (Non-Af Amer) POC Glucose (mg/dL) 137 H Random Glucose Hemoglobin A1c Calcium Phosphorus Magnesium Iron TIBC % Saturation Ferritin Total Bilirubin Direct Bilirubin AST ALT Alkaline Phosphatase Lactate Dehydrogenase Total Creatine Kinase CK-MB (Mass) Troponin I NT-Pro-B Natriuret Pep 2380 H Total Protein Albumin Globulin Albumin/Globulin Ratio Triglycerides Cholesterol LDL Cholesterol Direct HDL Cholesterol Homocysteine Urine Color Urine Clarity Urine pH Ur Specific [place] Urine Protein Urine Glucose (UA) Urine Ketones Urine Blood Urine Nitrate Urine Bilirubin Urine Urobilinogen Ur Leukocyte Esterase Urine WBC (Auto) Urine RBC (Auto) Ur Squamous Epith Cells Urine Bacteria Stool Occult Blood Hepatitis A IgM Ab Negative Hep Bs Antigen Negative Hep B Core IgM Ab Negative Hepatitis C Antibody Negative 09/07/17 09/07/17 09/07/17 04:00 04:15 04:15 WBC RBC Hgb Hct MCV MCH MCHC RDW Plt Count MPV Neut % (Auto) Lymph % (Auto) Aurora % (Auto) Eos % (Auto) Baso % (Auto) Neut # (Auto) Lymph # (Auto) [place] # (Auto) Eos # (Auto) Baso # (Auto) Retic Count Haptoglobin 100.0 PT INR APTT D-Dimer, Quantitative Sodium 143 Potassium 3.4 L Chloride 105 Carbon Dioxide 27 Anion Gap 14 BUN 16 Creatinine 1.5 Est GFR ( Amer) 57 Est GFR (Non-Af Amer) 47 POC Glucose (mg/dL) Random Glucose 119 H Hemoglobin A1c Calcium 8.6 Phosphorus 4.6 H Magnesium 1.8 Iron 41 L TIBC 274 % Saturation 15 L Ferritin 50.4 Total Bilirubin 0.4 Direct Bilirubin 0.2 AST 68 H D ALT 78 H Alkaline Phosphatase 60 Lactate Dehydrogenase 640 H Total Creatine Kinase CK-MB (Mass) Troponin I 0.0660 NT-Pro-B Natriuret Pep Total Protein 6.0 L Albumin 2.9 L Globulin 3.1 Albumin/Globulin Ratio 0.9 L Triglycerides 98 Cholesterol 107 LDL Cholesterol Direct 54 HDL Cholesterol 29 L Homocysteine 9.4 Urine Color Urine Clarity Urine pH Ur Specific [place] Urine Protein Urine Glucose (UA) Urine Ketones Urine Blood Urine Nitrate Urine Bilirubin Urine Urobilinogen Ur Leukocyte Esterase Urine WBC (Auto) Urine RBC (Auto) Ur Squamous Epith Cells Urine Bacteria Stool Occult Blood Hepatitis A IgM Ab Hep Bs Antigen Hep B Core IgM Ab Hepatitis C Antibody 09/07/17 09/07/17 09/07/17 04:15 04:36 06:39 WBC 5.6 RBC 3.88 L Hgb 10.5 L Hct 31.3 L MCV 80.6 MCH 27.1 MCHC 33.6 RDW 15.2 H Plt Count 194 MPV 11.3 Neut % (Auto) 51.1 Lymph % (Auto) 29.3 Aurora % (Auto) 12.5 H Eos % (Auto) 6.1 H Baso % (Auto) 1.0 Neut # (Auto) 2.9 Lymph # (Auto) 1.6 [place] # (Auto) 0.7 Eos # (Auto) 0.3 Baso # (Auto) 0.1 Retic Count 1.3 Haptoglobin PT INR APTT D-Dimer, Quantitative Sodium Potassium Chloride Carbon Dioxide Anion Gap BUN Creatinine Est GFR ( Amer) Est GFR (Non-Af Amer) POC Glucose (mg/dL) 135 H Random Glucose Hemoglobin A1c 7.0 H Calcium Phosphorus Magnesium Iron TIBC % Saturation Ferritin Total Bilirubin Direct Bilirubin AST ALT Alkaline Phosphatase Lactate Dehydrogenase Total Creatine Kinase CK-MB (Mass) Troponin I NT-Pro-B Natriuret Pep Total Protein Albumin Globulin Albumin/Globulin Ratio Triglycerides Cholesterol LDL Cholesterol Direct HDL Cholesterol Homocysteine Urine Color Urine Clarity Urine pH Ur Specific [place] Urine Protein Urine Glucose (UA) Urine Ketones Urine Blood Urine Nitrate Urine Bilirubin Urine Urobilinogen Ur Leukocyte Esterase Urine WBC (Auto) Urine RBC (Auto) Ur Squamous Epith Cells Urine Bacteria Stool Occult Blood Hepatitis A IgM Ab Hep Bs Antigen Hep B Core IgM Ab Hepatitis C Antibody Assessment & Plan (1) Pleural effusion Status: Acute (2) CKD (chronic kidney disease) stage 3, GFR 30-59 ml/min Status: Acute (3) Hypertensive chronic kidney disease with stage 1 through stage 4 chronic kidney disease, or unspecified chronic kidney disease Status: Acute (4) CHF (congestive heart failure) Status: Acute - Assessment and Plan (Free Text) Plan: Recent secondary HTN workup initiated and pending as outpt HTN remains uncontrolled- needs adjustments in meds Failed minoxidil as effusions might have been worsened by this. Will pursue renal workup. Had recent CVA- HTN uncontrolled for significant period of time.
--- NOTE | 2017-09-07 15:15 | PCM.SURG1 ---
Surgeon's Initial Post Op Note - Surgeon's Notes Surgeon: Lorenza Rowan Senior Case Manager: NONE Type of Anesthesia: Local Pre-Operative Diagnosis: Right pleural effusion Operative Findings: US showed small right effusion Post-Operative Diagnosis: Right pleural effusion Operation Performed: US guided right thoracentesis Specimen/Specimens Removed: 600 cc of yellow fluid Estimated Blood Loss: EBL {In ML}: 0 Blood Products Given: N/A Drains Used: No Drains Post-Op Condition: Fair Date of Surgery/Procedure: 09/07/17 Time of Surgery/Procedure: 14:25
[2017-09-07 15:18] LABS: BODY FLUID TYPE PLEURAL
[2017-09-07 15:58] LABS: BF GROSS APPEARANCE SL CLOUDY (CLEAR); BODY FLUID MONO/MACROPHAGE 3 % (0-0)
[2017-09-07 15:59] LABS: BODY FLUID TOTAL COUNT 100 (0-0)
[2017-09-08 00:32] VITALS: RESP 20
--- NOTE | 2017-09-08 02:37 | CON ---
DATE: CARDIOLOGY CONSULT Requested by the hospitalist group. LOCATION: Room 2. HISTORY OF PRESENT ILLNESS: I was requested to see this 61 years old Citizen Of [place] male with a long history of hypertension and diabetes who was admitted yesterday with significant increasing shortness of breath to mild exertion as well as dependent edema of both lower extremities. He was immediately evaluated in the emergency room. He was found to be in moderate congestive heart failure with moderate right-sided effusion as well as small left pleural effusion, and given intravenous furosemide, and he began to diuresis quite well and he began to improve quite rapidly. At this point in time, 24 hours later, he feels much better. He is eating lunch, and the son, Edgar, who is at the bedside helping me although the patient himself speaks Turkmen quite well. This nice gentleman was recently hospitalized in [facility] about a month ago after suffering a right cerebral infarct with left hemiparesis, and he is undergoing physical therapy as an outpatient now. He actually was also referred by his primary physician, Dr. Anne referred him to Dr. Ahumada, a traffic i manager, who saw him last about 10 days ago in his office due to severely elevated blood pressures. He adjusted some of his medications. Actually, I just happened to see Dr. Ahumada a few minutes ago and told him that I saw this patient as he was on his way to see him also. REVIEW OF SYSTEMS: From the cardiopulmonary view point includes the shortness of breath with mild exertion over the last several days or after a week or so to the point that he actually while taking the clothing out of the washing machine apparently that is what the son told me, he was significantly short of breath, and also he noticed significant edema of both lower extremities. The patient actually told me that he had been feeling better over the last several weeks, and he had been eating a lot more. I presumed that there was some dietary indiscretion or without realizing it, he was eating more salty foods than he should have. Rest of the review of systems is otherwise negative. PHYSICAL EXAMINATION: GENERAL: Reveals a middle-aged senior Citizen [place] male, very pleasant, cooperative, moderate obese in no distress whatsoever. He was able to move all extremities quite well in my opinion. VITAL SIGNS: Blood pressure on arrival this morning was around 149/64; however later on this afternoon, it jumped to 218/90. Obviously, some of his antihypertensive medications have been adjusted as we speak. Respiratory rate is basically unremarkable. Actually, he was eating lunch quite well. SKIN: Shows some mild edema of both lower extremities; however, he claims it is less than in the last few days. HEENT: Head, ears, nose, and throat, nothing spectacular, jugular vein especially to the right side, looks a little of the upper limits at 45 degrees in dimension. LUNGS: Lung donald with decreased breath sounds at the base of the right a lot more than the left, and I was just told that he is going to go and have a drainage of this "fluid" in his chest, I presume by the Interventional Radiology. CARDIOVASCULAR EXAM: Jugular veins are in upper limits. Heart sounds are somewhat distant. There is a systolic murmur at the left sternal border, I cannot totally identify where it is coming from, about grade 2/6. ABDOMEN: Obese. No gross organomegaly or detectable organomegaly. TOE SEWER EXAM: Alert, oriented, in my opinion moving arms and legs equally. COMPLEMENTARY DATA: Includes a CBC with borderline anemia of 10.5 hemoglobin, hematocrit around 31. Potassium this morning slightly low at 3.4, blood sugar mildly elevated. Troponins negative. Total CK mildly elevated, presumably due to all his injections, etc. Mildly elevated liver enzymes due to congested liver. Chest x-ray showing some cardiomegaly, pulmonary congestion, and bilateral pleural effusion right much bigger than left. EKG is showing sinus rhythm, low voltage in leads, presumably due to the edema, etc, and pleural effusion, no acute changes. IMPRESSION: Decompensated heart failure secondary to uncontrolled hypertensive cardiovascular disease. CONCLUSION: I had a very long conversation with the patient and the son, Edgar, and told him, this basically 99% of the time happens due to dietary indiscretion, etc, as well as uncontrolled hypertension as it is now. Once the situation is under control with the use of diuretics, GUSTAVO inhibitors as well as clonidine, hydralazine, etc that has been used now, he should follow proper dietary guidelines and check his weight daily at home. Actually, I mentioned that his job was to check his weight everyday at that same time with plus or minus same clothing and if he sees any significant gain more than 5 pounds, to notify his physician immediately. Some the investigations are pending, and I personally discussed the situation with Dr. Brandyn, the traffic i manager. Emery Galicia MD cc: Hospitalist Group [email or web address]
--- NOTE | 2017-09-08 07:50 | CP.PCM.PN ---
Subjective - Date & Time of Evaluation Date of Evaluation: 09/08/17 Time of Evaluation: 07:48 - Subjective Subjective: Progress note for Dr. Mason Patient seen and examined at bedside. Patient states he's doing well. No acute events overnight. Patient denies difficulty breathing today. Patient denies fever, chills, shortness of breath. Objective - Vital Signs/Intake and Output Vital Signs (last 24 hours): Temp Pulse Resp BP Pulse Ox 97.5 F L 69 20 187/76 H 97 09/07/17 23:20 09/08/17 01:00 09/07/17 23:20 09/08/17 05:21 09/07/17 23:20 Intake and Output: 09/08/17 09/08/17 06:59 18:59 Intake Total 200 Balance 200 - Medications Medications: Current Medications Aspirin (Aspirin Chewable) 81 mg PO DAILY [facility] Clonidine HCl (Catapres) 0.3 mg PO TID [facility] Last Admin: 09/07/17 18:55 Dose: 0.3 mg Clopidogrel Bisulfate (Plavix) 75 mg PO DAILY [facility] Dextrose (Dextrose 50% Inj) 0 ml IV STAT PRN; Protocol PRN Reason: Hypoglycemia Protocol Dextrose (Glutose 15) 0 gm PO ONCE PRN; Protocol PRN Reason: Hypoglycemia Protocol Ferrous Sulfate (Feosol) 325 mg PO DAILY [facility] Last Admin: 09/07/17 09:48 Dose: 325 mg Furosemide (Lasix) 40 mg IVP Q12H [facility] Last Admin: 09/08/17 05:21 Dose: 40 mg Glucagon (Glucagen Diagnostic Kit) 0 mg IM STAT PRN; Protocol PRN Reason: Hypoglycemia Protocol Heparin Sodium (Porcine) (Heparin) 5,000 units SC Q8 [facility] Last Admin: 09/08/17 05:24 Dose: 5,000 units Hydralazine HCl (Apresoline) 50 mg PO TID [facility] Last Admin: 09/07/17 18:55 Dose: 50 mg Dextrose (Dextrose 5% In Water 1000 Ml) 1,000 mls @ 0 mls/hr IV .Q0M PRN; Protocol; Per Protocol PRN Reason: Hypoglycemia Protocol Insulin Human Regular (Novolin R) 0 unit SC ACHS [facility] PRN Reason: Protocol Last Admin: 09/07/17 21:28 Dose: Not Given Labetalol HCl (Trandate) 100 mg PO BID [facility] Last Admin: 09/07/17 18:56 Dose: 100 mg Lisinopril (Zestril) 10 mg PO DAILY [facility] Last Admin: 09/07/17 09:48 Dose: 10 mg Rosuvastatin Calcium (Crestor) 5 mg PO HS [facility] Last Admin: 09/07/17 22:08 Dose: 5 mg - Labs Labs: 09/07/17 04:15 09/07/17 04:15 PT 14.8 SECONDS (9.7-12.2) H 09/06/17 14:50 INR 1.4 09/06/17 14:50 APTT 37 SECONDS (21-34) H 09/06/17 14:50 - Additional Findings Additional findings: - Constitutional Appears: Non-toxic, No Acute Distress - Head Exam Head Exam: ATRAUMATIC, NORMAL INSPECTION, NORMOCEPHALIC - Eye Exam Eye Exam: EOMI, Normal appearance - ENT Exam ENT Exam: Mucous Membranes Moist, Normal Oropharynx - Neck Exam Neck exam: Positive for: Full Rom. Negative for: Lymphadenopathy, Tenderness, Thyromegaly - Respiratory Exam Respiratory Exam: Decreased Breath Sounds (on the right), NORMAL BREATHING PATTERN. absent: Clear to Auscultation Bilateral, Rales - Cardiovascular Exam Cardiovascular Exam: REGULAR RHYTHM, +S1, +S2, Systolic Murmur. absent: Bradycardia, Tachycardia - GI/Abdominal Exam GI & Abdominal Exam: Normal Bowel Sounds, Soft. absent: Organomegaly, Rebound, Rigid, Tenderness - Extremities Exam Extremities exam: Positive for: full ROM, normal capillary refill, normal inspection, pedal edema (2+ pitting edema bilaterally ), pedal pulses present. Negative for: tenderness - Back Exam Back exam: FULL ROM, NORMAL INSPECTION - Neurological Exam Neurological exam: Alert, CN II-XII Intact, Normal Gait, Oriented x3 - Psychiatric Exam Psychiatric exam: Normal Affect, Normal Mood - Skin Skin Exam: Dry, Intact, Normal Color, Warm Assessment and Plan - Assessment and Plan (Free Text) Assessment: Assessment and Plan - Assessment and Plan (Free Text) Assessment: 1) possible heart failure Lasix 40mg PO BID starting 6am 09/09/17 hold beta blockers due to acute nature f/u 2D echo head of bed 45 degrees daily weight strict input and output Troponin I at 09/06 2100 and 09/07 0300 Cardio Consult: Dr. Emery Galicia 2) uncontrolled HTN F/U V[facility] 24 hour urine collection for workup of the still uncontrolled HTN per Dr. Ahumada Lasix 40mg PO BID Lisinopril 10 mg PO QD 10 am Clonidine 0.3 mg PO Q8H 09/06 starting 8am and 8pm Hydralazine 50 mg PO TID 09/08 09/08 NPO p Midnight for Renal artery duplex 3) elevated D-dimer bilateral venous duplex LE CT angio Chest: no PE. Bilateral pleural effusions right larger than left. compressive atelectasis right lower lobe. 4) right sided medium pleural effusion monitor for now discontinue minoxidil IR Dr. Dennison for drainage 600cc drained. specimens sent for cytology, total protein and LDH 5) Elevated LFTs f/u hepatitis panel f/u HIV gen 4 6) anemia Iron 41 TIBC 274 % saturation 15 occult stool negative patient placed on Ferrous sulfate 325 mg PO QD 09/07 for low iron Patient will need outpatient colonoscopy f/u peripheral smear homocysteine: 9.4 normal f/u antiparietal cell ab f/u anti intrinsic factor ab f/u direct bilirubin f/u reticulocyte f/u methylmalonic acid f/u haptglobin LDH 640, elevated 7) Diabetes, controlled hold PO home medication low dose ISS ACHS hypoglycemic protocol hgb A1c in AM 7.0 8) hx CVA about a month ago plavix asa 81 mg POQD prophylaxis scds 09/08 NPO p Midnight for Renal artery duplex discussed with Dr. Marlon Mata, DO PGY1
[2017-09-08 07:59] LABS: BASO # 0.1 K/uL (0.0-0.2); BASO % 1.3 % (0.0-2.0); EOS # 0.2 K/uL (0.0-0.7); EOS % 3.9 % (0.0-4.0); HEMOGLOBIN 10.6 g/dL (12.0-18.0); LYMPH # 1.5 K/uL (1.0-4.3); MEAN CELL VOLUME 80.7 fL (80.0-94.0); MEAN CORPUSCULAR HEMOGLOBIN 27.7 pg (27.0-31.0); MEAN CORPUSCULAR HGB CONC 34.3 g/dL (33.0-37.0); MEAN PLATELET VOLUME 11.9 fL (7.2-11.7); MONO # 0.6 K/uL (0.0-0.8); MONO % 10.6 % (0.0-10.0); NEUT # 3.3 K/uL (1.8-7.0); NEUT % 58.2 % (50.0-75.0); RBC 3.82 Mil/uL (4.40-5.90); RED CELL DISTRIBUTION WIDTH 15.3 % (11.5-14.5); WHITE BLOOD COUNT 5.7 K/uL (4.8-10.8)
[2017-09-08 08:05] LABS: ALT/SGPT 77 U/L (21-72); AST/SGOT 57 U/L (17-59); BLOOD UREA NITROGEN 17 mg/dL (9-20); CALCIUM 8.6 mg/dl (8.6-10.4); GFR AFRICAN-AMERICAN > 60; GFR NON-AFRICAN AMERICAN 56
[2017-09-08 08:13] LABS: ALBUMIN 3.1 g/dL (3.5-5.0)
[2017-09-08] MEDS: (Novolin R) Insulin Human Regular 100 units/ml vial SC SCH ×4 (08:14→21:13)
[2017-09-08 08:57] LABS: CK-MB 3.01 ng/mL (0.0-3.38)
--- NOTE | 2017-09-08 09:58 | CP.PCM.PN ---
Subjective - Date & Time of Evaluation Date of Evaluation: 09/08/17 Time of Evaluation: 09:56 - Subjective Subjective: comfortable less dyspneic BP remains elevated s/p drainage of small pleural effusion good UO with IV lasix Objective - Vital Signs/Intake and Output Vital Signs (last 24 hours): Temp Pulse Resp BP Pulse Ox 97.9 F 60 20 187/80 H 97 09/08/17 07:25 09/08/17 09:10 09/08/17 07:25 09/08/17 09:10 09/08/17 07:25 Intake and Output: 09/08/17 09/08/17 06:59 18:59 Intake Total 200 Balance 200 - Medications Medications: Current Medications Aspirin (Aspirin Chewable) 81 mg PO DAILY [facility] Last Admin: 09/08/17 09:10 Dose: 81 mg Clonidine HCl (Catapres) 0.3 mg PO TID [facility] Last Admin: 09/08/17 09:10 Dose: 0.3 mg Clopidogrel Bisulfate (Plavix) 75 mg PO DAILY [facility] Last Admin: 09/08/17 09:10 Dose: 75 mg Dextrose (Dextrose 50% Inj) 0 ml IV STAT PRN; Protocol PRN Reason: Hypoglycemia Protocol Dextrose (Glutose 15) 0 gm PO ONCE PRN; Protocol PRN Reason: Hypoglycemia Protocol Ferrous Sulfate (Feosol) 325 mg PO DAILY [facility] Last Admin: 09/08/17 09:10 Dose: 325 mg Furosemide (Lasix) 40 mg IVP Q12H [facility] Last Admin: 09/08/17 05:21 Dose: 40 mg Glucagon (Glucagen Diagnostic Kit) 0 mg IM STAT PRN; Protocol PRN Reason: Hypoglycemia Protocol Heparin Sodium (Porcine) (Heparin) 5,000 units SC Q8 [facility] Last Admin: 09/08/17 05:24 Dose: 5,000 units Hydralazine HCl (Apresoline) 50 mg PO TID [facility] Last Admin: 09/08/17 09:10 Dose: 50 mg Dextrose (Dextrose 5% In Water 1000 Ml) 1,000 mls @ 0 mls/hr IV .Q0M PRN; Protocol; Per Protocol PRN Reason: Hypoglycemia Protocol Cefazolin Sodium 2,000 mg/ (Sodium Chloride) 50 mls @ 100 mls/hr IVPB MWF [facility] PRN Reason: Protocol Insulin Human Regular (Novolin R) 0 unit SC ACHS [facility] PRN Reason: Protocol Last Admin: 09/08/17 08:14 Dose: 2 unit Labetalol HCl (Trandate) 100 mg PO BID [facility] Last Admin: 09/08/17 09:11 Dose: 100 mg Lisinopril (Zestril) 10 mg PO DAILY [facility] Last Admin: 09/08/17 09:11 Dose: 10 mg Rosuvastatin Calcium (Crestor) 5 mg PO HS [facility] Last Admin: 09/07/17 22:08 Dose: 5 mg - Labs Labs: 09/08/17 07:43 09/08/17 07:43 PT 14.8 SECONDS (9.7-12.2) H 09/06/17 14:50 INR 1.4 09/06/17 14:50 APTT 37 SECONDS (21-34) H 09/06/17 14:50 - Constitutional Appears: No Acute Distress, Chronically Ill - Head Exam Head Exam: NORMAL INSPECTION, NORMOCEPHALIC - Eye Exam Eye Exam: EOMI, Normal appearance - Neck Exam Neck Exam: Normal Inspection. absent: Tenderness - Respiratory Exam Respiratory Exam: Decreased Breath Sounds, NORMAL BREATHING PATTERN - Cardiovascular Exam Cardiovascular Exam: REGULAR RHYTHM, +S1 - GI/Abdominal Exam GI & Abdominal Exam: Soft. absent: Tenderness - Extremities Exam Extremities Exam: Normal Inspection. absent: Tenderness - Neurological Exam Neurological Exam: Alert, CN II-XII Intact - Skin Skin Exam: Dry, Warm Assessment and Plan (1) Pleural effusion Status: Acute (2) CKD (chronic kidney disease) stage 3, GFR 30-59 ml/min Status: Acute (3) Hypertensive chronic kidney disease with stage 1 through stage 4 chronic kidney disease, or unspecified chronic kidney disease Status: Acute (4) CHF (congestive heart failure) Status: Acute - Assessment and Plan (Free Text) Plan: increase BP meds secondary HTN workup evaluate for nephrotic syndrome
[2017-09-08] MEDS: Ferric Sodium Gluconat Complex 62.5 mg/5 ml Vial IVPB SCH (10:31)
--- NOTE | 2017-09-08 12:18 | CARD ---
APPROVED REPORT EXAM: Two-dimensional and M-mode echocardiogram with Doppler and color Doppler. Other Information Quality : TDSRhythm : INDICATION CVA/TIA Congestive Heart Failure RISK FACTORS Hypertension Hyperlipidemia Diabetes 2D DIMENSIONS IVSd1.3 (0.7-1.1cm)LVDd4.8 (3.9-5.9cm) PWd1.3 (0.7-1.1cm)LVDs3.4 (2.5-4.0cm) FS (%) 28.4 %LVEF (%)65.0 (>50%) Mitral Valve MV E Jddhadfu419.5cm/sMV A Oafhbfgg986.1cm/sE/A ratio1.1 TDI E/Lateral E'0.0E/Medial E'0.0 Tricuspid Valve TR Peak [id number]/sTR Peak Gr.[id number] LEFT VENTRICLE The left ventricle is normal size. There is normal left ventricular wall thickness. The left ventricular function is normal. The left ventricular ejection fraction is within the normal range. There is normal LV segmental wall motion. The left ventricular diastolic function is normal. RIGHT VENTRICLE The right ventricle is normal size. ATRIA The left atrium size is normal. The right atrium size is normal. AORTIC VALVE The aortic valve is normal in structure. MITRAL VALVE The mitral valve is normal in structure. TRICUSPID VALVE There is mild tricuspid regurgitation. <Conclusion> Normal LV systolic function. Normal chamber size. Mild TR.
--- NOTE | 2017-09-08 16:12 | CP.PCM.CON ---
History of Present Illness - History of Present Illness History of Present Illness: reason for consultation: pleural effusion 61-year-old male with history off CVA, diabetes, hypertension who was admitted with worsening shortness of breathand found to have large pleural effusion. Status post thoracentesis yesterday. Patient states breathing is better but still complaining of swelling of legs. Denies fever chills, denies chest pain PMH: history of CVA (1 month ago in [place] in [place], [place]), DM, HTN surgical: none Social Hx: chews tobacco and stopped after his stroke 1 month ago, never smoked , social ETOH Allergies: NKDA Review of Systems - Review of Systems All systems: reviewed and no additional remarkable complaints except (shortness of breath) Past Patient History - Past Medical History & Family History Past Medical History?: Yes Past Family History: Reviewed and not pertinent - Past Social History Smoking Status: Never Smoked Chewing Tobacco Use: No Cigar Use: No Alcohol: None Drugs: Denies Home Situation {Lives}: With Family - CARDIAC Hx Hypercholesterolemia: Yes Hx Hypertension: Yes - PULMONARY Hx Respiratory Disorders: No - NEUROLOGICAL Hx Neurological Disorder: Yes HX Cerebrovascular Accident: Yes (07/26/17) - HEENT Hx HEENT Problems: No - RENAL Hx Chronic Kidney Disease: No - ENDOCRINE/METABOLIC Hx Diabetes Mellitus Type 2: Yes - HEMATOLOGICAL/ONCOLOGICAL Hx Blood Disorders: No - INTEGUMENTARY Hx Dermatological Problems: No - MUSCULOSKELETAL/RHEUMATOLOGICAL Hx Musculoskeletal Disorders: Yes Hx Falls: Yes - GASTROINTESTINAL Hx Gastrointestinal Disorders: No - GENITOURINARY/GYNECOLOGICAL Hx Genitourinary Disorders: No - PSYCHIATRIC Hx Substance Use: No - SURGICAL HISTORY Hx Surgeries: No - ANESTHESIA Hx Anesthesia: No Hx Anesthesia Reactions: No Hx Malignant Hyperthermia: No Has any member of the family had a problem w/ anesthesia?: No Meds Allergies/Adverse Reactions: Allergies Allergy/AdvReac Type Severity Reaction Status Date / Time No Known Allergies Allergy Verified 09/06/17 13:46 - Medications Medications: Current Medications Aspirin (Aspirin Chewable) 81 mg PO DAILY [facility] Last Admin: 09/08/17 09:10 Dose: 81 mg Clonidine HCl (Catapres) 0.3 mg PO TID [facility] Last Admin: 09/08/17 13:05 Dose: 0.3 mg Clopidogrel Bisulfate (Plavix) 75 mg PO DAILY [facility] Last Admin: 09/08/17 09:10 Dose: 75 mg Dextrose (Dextrose 50% Inj) 0 ml IV STAT PRN; Protocol PRN Reason: Hypoglycemia Protocol Dextrose (Glutose 15) 0 gm PO ONCE PRN; Protocol PRN Reason: Hypoglycemia Protocol Ferric Sodium Gluconate Complex (Ferrlecit) 125 mg IVPB DAILY [facility] Stop: 09/16/17 10:16 Last Admin: 09/08/17 10:31 Dose: 125 mg Furosemide (Lasix) 40 mg IVP Q12H [facility] Last Admin: 09/08/17 05:21 Dose: 40 mg Glucagon (Glucagen Diagnostic Kit) 0 mg IM STAT PRN; Protocol PRN Reason: Hypoglycemia Protocol Heparin Sodium (Porcine) (Heparin) 5,000 units SC Q8 [facility] Last Admin: 09/08/17 13:04 Dose: 5,000 units Hydralazine HCl (Apresoline) 50 mg PO TID [facility] Last Admin: 09/08/17 13:04 Dose: 50 mg Dextrose (Dextrose 5% In Water 1000 Ml) 1,000 mls @ 0 mls/hr IV .Q0M PRN; Protocol; Per Protocol PRN Reason: Hypoglycemia Protocol Cefazolin Sodium 2,000 mg/ (Sodium Chloride) 50 mls @ 100 mls/hr IVPB MWF [facility] PRN Reason: Protocol Insulin Human Regular (Novolin R) 0 unit SC ACHS [facility] PRN Reason: Protocol Last Admin: 09/08/17 12:29 Dose: 3 unit Labetalol HCl (Trandate) 200 mg PO BID [facility] Last Admin: 09/08/17 10:31 Dose: 200 mg Lisinopril (Zestril) 40 mg PO DAILY [facility] Last Admin: 09/08/17 10:31 Dose: 40 mg Rosuvastatin Calcium (Crestor) 5 mg PO [facility] Last Admin: 09/07/17 22:08 Dose: 5 mg Sitagliptin Phosphate (Januvia) 100 mg PO DAILY [facility] Last Admin: 09/08/17 12:29 Dose: 100 mg Physical Exam - Head Exam Head Exam: ATRAUMATIC, NORMOCEPHALIC - Eye Exam Eye Exam: Normal appearance - ENT Exam ENT Exam: Mucous Membranes Moist - Neck Exam Neck exam: Positive for: Normal Inspection - Respiratory Exam Respiratory Exam: Decreased Breath Sounds - Cardiovascular Exam Cardiovascular Exam: REGULAR RHYTHM Results - Vital Signs Recent Vital Signs: Last Vital Signs Temp 97.9 F 09/08/17 07:25 Pulse 66 09/08/17 13:03 Resp 20 09/08/17 07:25 BP 150/67 09/08/17 13:03 Pulse Ox 97 09/08/17 07:25 - Labs Result Diagrams: 09/08/17 07:43 09/08/17 07:43 Labs: Laboratory Results - last 24 hr 09/07/17 09/07/17 09/07/17 07:20 11:01 16:30 WBC RBC Hgb Hct MCV MCH MCHC RDW Plt Count MPV Neut % (Auto) Lymph % (Auto) Starke % (Auto) Eos % (Auto) Baso % (Auto) Neut # (Auto) Lymph # (Auto) Starke # (Auto) Eos # (Auto) Baso # (Auto) Sodium Potassium Chloride Carbon Dioxide Anion Gap BUN Creatinine Est GFR ( Amer) Est GFR (Non-Af Amer) POC Glucose (mg/dL) 209 H 215 H Random Glucose Calcium Phosphorus Magnesium Total Bilirubin AST ALT Alkaline Phosphatase Total Creatine Kinase CK-MB (Mass) Total Protein Albumin Globulin Albumin/Globulin Ratio HIV 1&2 Ag/Ab, 4th Gen Nonreactive 09/07/17 09/08/17 09/08/17 20:57 06:16 07:43 WBC 5.7 RBC 3.82 L Hgb 10.6 L Hct 30.9 L MCV 80.7 MCH 27.7 MCHC 34.3 RDW 15.3 H Plt Count 202 MPV 11.9 H Neut % (Auto) 58.2 Lymph % (Auto) 26.0 Starke % (Auto) 10.6 H Eos % (Auto) 3.9 Baso % (Auto) 1.3 Neut # (Auto) 3.3 Lymph # (Auto) 1.5 Starke # (Auto) 0.6 Eos # (Auto) 0.2 Baso # (Auto) 0.1 Sodium Potassium Chloride Carbon Dioxide Anion Gap BUN Creatinine Est GFR ( Amer) Est GFR (Non-Af Amer) POC Glucose (mg/dL) 167 H 245 H Random Glucose Calcium Phosphorus Magnesium Total Bilirubin AST ALT Alkaline Phosphatase Total Creatine Kinase CK-MB (Mass) Total Protein Albumin Globulin Albumin/Globulin Ratio HIV 1&2 Ag/Ab, 4th Gen 09/08/17 09/08/17 07:43 11:17 WBC RBC Hgb Hct MCV MCH MCHC RDW Plt Count MPV Neut % (Auto) Lymph % (Auto) Starke % (Auto) Eos % (Auto) Baso % (Auto) Neut # (Auto) Lymph # (Auto) Starke # (Auto) Eos # (Auto) Baso # (Auto) Sodium 142 Potassium 3.6 Chloride 105 Carbon Dioxide 27 Anion Gap 14 BUN 17 Creatinine 1.3 Est GFR ( Amer) > 60 Est GFR (Non-Af Amer) 56 POC Glucose (mg/dL) 257 H Random Glucose 203 H Calcium 8.6 Phosphorus 4.6 H Magnesium 1.9 Total Bilirubin 0.3 AST 57 ALT 77 H Alkaline Phosphatase 65 Total Creatine Kinase 307 H CK-MB (Mass) 3.01 Total Protein 6.2 L Albumin 3.1 L Globulin 3.1 Albumin/Globulin Ratio 1.0 HIV 1&2 Ag/Ab, 4th Gen Assessment & Plan (1) Pleural effusion Status: Acute Comment: status post thoracentesis. Fluid analysis. Cardiac workup. Diuretics (2) CHF (congestive heart failure) Status: Acute
--- NOTE | 2017-09-08 22:27 | CARD ---
APPROVED REPORT EKG Measurement Heart [id number] <Conclusion> Sinus bradycardia Low voltage QRS in limb leads Borderline ECG
--- NOTE | 2017-09-08 23:46 | PN ---
DATE: 09/08/2017 SUBJECTIVE: Appears improving. Denies any shortness of breath at this point. He is resting in bed awaiting for his dinner. Yesterday, he underwent a right paracentesis of right pleural effusion and he feels much better now. There is a trace of edema. He denies any chest discomfort or palpitations. REVIEW OF SYSTEMS: Rest of the review of system is otherwise negative. PHYSICAL EXAMINATION: GENERAL: Alert and oriented in very good mood who would laugh and joke due to diet, etc., in no distress obviously. VITAL SIGNS: Blood pressure remains elevated, however, coming down; yesterday at one point was about 187/80, now is in the range of about 165/68. He is afebrile and his heart rate is in the 60s, sinus. SKIN: The skin is warm and dry. There is a trace of edema still in the lower extremities, but less. HEENT: Basically unremarkable for his age. CHEST: Shows significant expansion, decreased breath sounds at both bases, right more than left. CARDIOLOGIC: From a cardiologic viewpoint, jugular veins are nondistended in less than 30 degrees inclination. Heart sounds regular with slight systolic murmur. Nothing extraordinary. ABDOMEN: Obese. No localized tenderness. HEARING AID ASSISTANT: HEARING AID ASSISTANT exam unremarkable. LABORATORY DATA: Complementary data: The blood sugar remains in the 200s or so. Electrolytes with potassium now is normal at 3.6. BUN and creatinine also normal. There is still mild elevation of the creatinine and some of the liver enzymes due to congestive liver. Echocardiogram again reviewed. The left ventricular function, there is mild concentric mild hypertrophy with preserved but normal left ventricular systolic function, diastolic dysfunction. IMPRESSION: 1. Hypertensive heart disease. 2. Normal left ventricular systolic function, heart failure - diastolic dysfunction. SUGGESTION: I had a very long conversation with Mr. Mckeon, concerning his diet, which I think is 99% of the problem that brought him in here. He did not realize that there was "salt in al the foods, and he learned his lesson." He is going to be watching the diet closely. I also strongly advised him to follow up his weight daily. The weight today had not been checked yet. Yesterday it was 227 in the morning in the bed, which was dated 08/30/2017, just came in data is about 229, but this is in the evening, so I advised him that tomorrow in the morning to ask somebody to check the weight. As far as the medication, continue diuretics as presently being done as well as GUSTAVO inhibitors under the guidance of Dr. Ahumada. Since he is well controlled by the hospitalist as well as Dr. Ahumada, I will only see him if requested. Emery Galicia MD MTDD
[2017-09-09 06:37] LABS: BASO # 0.1 K/uL (0.0-0.2); BASO % 1.3 % (0.0-2.0); EOS # 0.4 K/uL (0.0-0.7); EOS % 6.3 % (0.0-4.0); HEMOGLOBIN 10.8 g/dL (12.0-18.0); LYMPH # 1.5 K/uL (1.0-4.3); LYMPH % 27.3 % (20.0-40.0); MEAN CELL VOLUME 80.8 fL (80.0-94.0); MEAN CORPUSCULAR HEMOGLOBIN 27.6 pg (27.0-31.0); MEAN CORPUSCULAR HGB CONC 34.2 g/dL (33.0-37.0); MEAN PLATELET VOLUME 11.3 fL (7.2-11.7); MONO # 0.6 K/uL (0.0-0.8); MONO % 10.1 % (0.0-10.0); NEUT # 3.1 K/uL (1.8-7.0); RBC 3.92 Mil/uL (4.40-5.90); RED CELL DISTRIBUTION WIDTH 15.2 % (11.5-14.5); WHITE BLOOD COUNT 5.7 K/uL (4.8-10.8)
[2017-09-09 06:58] LABS: ALB/GLOB RATIO 0.9 (1.0-2.1); ALBUMIN 3.2 g/dL (3.5-5.0); ALT/SGPT 78 U/L (21-72); AST/SGOT 56 U/L (17-59); BLOOD UREA NITROGEN 18 mg/dL (9-20); GFR AFRICAN-AMERICAN > 60; GFR NON-AFRICAN AMERICAN 51
[2017-09-09 08:03] VITALS: PULSE 58; TEMP 98.2; O2SAT 99
[2017-09-09] MEDS: (Novolin R) Insulin Human Regular 100 units/ml vial SC SCH ×2 (08:30→12:30)
--- NOTE | 2017-09-09 09:11 | CP.PCM.DIS ---
<Robyn Mata - Last Filed: 09/09/17 15:44> Provider - Provider Date of Admission: 09/06/17 16:16 Attending physician: Jovon Kilgore DO Consults: Dr. Brandyn Lopez Time Spent in preparation of Discharge (in minutes): 35 Diagnosis - Discharge Diagnosis (1) CHF (congestive heart failure) Status: Resolved (2) CKD (chronic kidney disease) stage 3, GFR 30-59 ml/min Status: Chronic Hospital Course - Lab Results Lab Results: Micro Results 09/07/17 15:15 Other: Please Indicate Mycobacterial Culture - Preliminary 09/07/17 15:16 Pleural Fluid Fungal Culture - Preliminary 09/07/17 15:15 Body Fluid - Pleural Fluid Gram Stain - Final 09/07/17 15:15 Body Fluid - Pleural Fluid Body Fluid Culture - Preliminary NO GROWTH AFTER 24 HOURS Most Recent Lab Values WBC 5.7 K/uL (4.8-10.8) 09/09/17 06:30 RBC 3.92 Mil/uL (4.40-5.90) L 09/09/17 06:30 Hgb 10.8 g/dL (12.0-18.0) L 09/09/17 06:30 Hct 31.6 % (35.0-51.0) L 09/09/17 06:30 MCV 80.8 fL (80.0-94.0) 09/09/17 06:30 MCH 27.6 pg (27.0-31.0) 09/09/17 06:30 MCHC 34.2 g/dL (33.0-37.0) 09/09/17 06:30 RDW 15.2 % (11.5-14.5) H 09/09/17 06:30 Plt Count 190 K/uL (130-400) 09/09/17 06:30 MPV 11.3 fL (7.2-11.7) 09/09/17 06:30 Neut % (Auto) 55.0 % (50.0-75.0) 09/09/17 06:30 Lymph % (Auto) 27.3 % (20.0-40.0) 09/09/17 06:30 [place] % (Auto) 10.1 % (0.0-10.0) H 09/09/17 06:30 Eos % (Auto) 6.3 % (0.0-4.0) H 09/09/17 06:30 Baso % (Auto) 1.3 % (0.0-2.0) 09/09/17 06:30 Neut # (Auto) 3.1 K/uL (1.8-7.0) 09/09/17 06:30 Lymph # (Auto) 1.5 K/uL (1.0-4.3) 09/09/17 06:30 [place] # (Auto) 0.6 K/uL (0.0-0.8) 09/09/17 06:30 Eos # (Auto) 0.4 K/uL (0.0-0.7) 09/09/17 06:30 Baso # (Auto) 0.1 K/uL (0.0-0.2) 09/09/17 06:30 Retic Count 1.3 % (0.5-1.5) 09/07/17 04:15 Haptoglobin 100.0 mg/dL (30.0-200.0) 09/07/17 04:00 PT 14.8 SECONDS (9.7-12.2) H 09/06/17 14:50 INR 1.4 09/06/17 14:50 APTT 37 SECONDS (21-34) H 09/06/17 14:50 D-Dimer, Quantitative 694 ng/mlDDU (0-243) H 09/06/17 14:50 Sodium 141 mmol/L (132-148) 09/09/17 06:30 Potassium 4.1 mmol/L (3.6-5.2) 09/09/17 06:30 Chloride 104 mmol/L (98-107) 09/09/17 06:30 Carbon Dioxide 27 mmol/L (22-30) 09/09/17 06:30 Anion Gap 14 (10-20) 09/09/17 06:30 BUN 18 mg/dL (9-20) 09/09/17 06:30 Creatinine 1.4 mg/dL (0.8-1.5) 09/09/17 06:30 Est GFR ( Amer) > 60 09/09/17 06:30 Est GFR (Non-Af Amer) 51 09/09/17 06:30 POC Glucose (mg/dL) 215 mg/dL (65-110) H 09/09/17 06:17 Random Glucose 205 mg/dL (75-110) H 09/09/17 06:30 Hemoglobin A1c 7.0 % (4.2-6.5) H 09/07/17 04:36 Calcium 9.0 mg/dl (8.6-10.4) 09/09/17 06:30 Phosphorus 5.0 mg/dL (2.5-4.5) H 09/09/17 06:30 Magnesium 1.9 mg/dL (1.6-2.3) 09/09/17 06:30 Iron 41 ug/dL (49-181) L 09/07/17 04:15 TIBC 274 ug/dL (250-450) 09/07/17 04:15 % Saturation 15 (20-55) L 09/07/17 04:15 Ferritin 50.4 ng/mL 09/07/17 04:15 Total Bilirubin 0.4 mg/dL (0.2-1.3) 09/09/17 06:30 Direct Bilirubin 0.2 mg/dL (0.0-0.4) 09/07/17 04:15 AST 56 U/L (17-59) 09/09/17 06:30 ALT 78 U/L (21-72) H 09/09/17 06:30 Alkaline Phosphatase 70 U/L (38-126) 09/09/17 06:30 Lactate Dehydrogenase 640 U/L (313-618) H 09/07/17 04:15 Total Creatine Kinase 307 U/L (55-170) H 09/08/17 07:43 CK-MB (Mass) 3.01 ng/mL (0.0-3.38) 09/08/17 07:43 Troponin I 0.0660 ng/mL (0.00-0.120) 09/07/17 04:15 NT-Pro-B Natriuret Pep 2380 pg/mL (0-900) H 09/06/17 20:50 Total Protein 6.6 g/dL (6.3-8.3) 09/09/17 06:30 Albumin 3.2 g/dL (3.5-5.0) L 09/09/17 06:30 Globulin 3.4 gm/dL (2.2-3.9) 09/09/17 06:30 Albumin/Globulin Ratio 0.9 (1.0-2.1) L 09/09/17 06:30 Triglycerides 98 mg/dL (0-149) 09/07/17 04:15 Cholesterol 107 mg/dL (0-199) 09/07/17 04:15 LDL Cholesterol Direct 54 mg/dL (0-129) 09/07/17 04:15 HDL Cholesterol 29 mg/dL (30-70) L 09/07/17 04:15 Homocysteine 9.4 umol/L (6.6-14.8) 09/07/17 04:15 Urine Color Yellow (YELLOW) 09/06/17 15:18 Urine Clarity Clear (Clear) 09/06/17 15:18 Urine pH 5.0 (5.0-8.0) 09/06/17 15:18 Ur Specific [place] 1.006 (1.003-1.030) 09/06/17 15:18 Urine Protein 2+ mg/dL (NEGATIVE) H 09/06/17 15:18 Urine Glucose (UA) Normal mg/dL (Normal) 09/06/17 15:18 Urine Ketones Negative mg/dL (NEGATIVE) 09/06/17 15:18 Urine Blood Negative (NEGATIVE) 09/06/17 15:18 Urine Nitrate Negative (NEGATIVE) 09/06/17:18 Urine Bilirubin Negative (NEGATIVE) 09/06/17 15:18 Urine Urobilinogen Normal mg/dL (0.2-1.0) 09/06/17 15:18 Ur Leukocyte Esterase Neg Adriana/uL (Negative) 09/06/17 15:18 Urine WBC (Auto) < 1 /hpf (0-5) 09/06/17 15:18 Urine RBC (Auto) < 1 /hpf (0-3) 09/06/17 15:18 Ur Squamous Epith Cells < 1 /hpf (0-5) 09/06/17 15:18 Urine Bacteria Rare (<OCC) 09/06/17 15:18 Fluid Source Pleural 09/07/17 15:15 Fluid Appearance Sl cloudy (CLEAR) 09/07/17 15:15 Fluid WBC 631.0 /mm3 (0.0-300.0) H 09/07/17 15:15 Fluid RBC 1382.0 /mm3 (0.0-0.0) H 09/07/17 15:15 Fluid Tot Cell Count 100 (0-0) H 09/07/17 15:15 Fluid Neutrophils 2.0 % (0-0) H 09/07/17 15:15 Fluid Lymphocytes 95.0 % (0-0) H 09/07/17 15:15 Fld Monocyte/Macrophag 3 % (0-0) H 09/07/17 15:15 Fluid Comment 09/07/17 15:15 Stool Occult Blood Negative (NEGATIVE) 09/06/17 19:49 Hepatitis A IgM Ab Negative (NEGATIVE) 09/07/17 04:00 Hep Bs Antigen Negative (NEGATIVE) 09/07/17 04:00 Hep B Core IgM Ab Negative (NEGATIVE) 09/07/17 04:00 Hepatitis C Antibody Negative (NEGATIVE) 09/07/17 04:00 HIV 1&2 Ag/Ab, 4th Gen Nonreactive (Nonreactive) 09/07/17 07:20 - Hospital Course Hospital Course: CC: SOB HPI 61-year-old male, presents to the emergency department with complaints of shortness of breath. Patient started having leg swelling. Dr. Conroy sent patient to Dr. Ahumada for consult who changed patients medications from norvasc to Minoxidil. For one week patient had leg swelling, patient was given furosemide and catapres. Patient states he does not have difficulty urinating. Patient states he can walk a few feet but then gets short of breath going to the bathroom. Patient states he called Dr. Ahumada to update medication but Patient is consistent short of breath, that is associated with wheezing and lower extremity pitting edema. he denies chest pain, nausea/vomiting, headache or any other associated symptoms No other complaints at this time. Patient was taking aspirin, plavix for his CVA. PMH: history of CVA (1 month ago in [facility] in [place], [place]), DM, HTN surgical: none Social Hx: chews tobacco and stopped after his stroke 1 month ago, never smoked , social ETOH Allergies: NKDA PMD: Dr. Conroy full code son is the decision maker in case Patient cannot make decisions Hospital course: During this admission, patient was seen and examined by cardiology Dr. Galicia, nephrology Dr. Ahumada, pulmonology Dr. Lopez, and interventional radiology Dr. Dennison. Patient was worked up for possible heart failure secondary to uncontrolled hypertension, found to have preserved ejection fraction. Hypertension medication added and adjusted, pressure controlled on current regimen, and patient asymptomatic. Work up negative for pulmonary embolism. Patient found to have a right sided pleural effusion, subsequently 600cc drained by intervational radiology with improvement of symptoms. Lab analysis on 09/07/17 showed serum total protein 6.0, serum LDH 640, fluid WBC 631, fluid RBC 1382, fluid cell count 100. Pulmonology recommended cardiac workup with no further recommendations after pleural effusion was drained. Patient will need continued follow up and evaluation by nephrology as outpatient. Imaging: Chest x-ray (09/06/17): The central pulmonary vasculature is increased. There is small to medium size right-sided effusion presumably associated with atelectasis and/or infiltrate. Minimal left basilar atelectasis and small left effusion. Collectively findings are consistent with mild pulmonary edema/CHF. Lower extremity arterial duplex (09/06/17): No evidence of deep or superficial vein thrombosis of bilateral lower extremities. Normal valve function noted bilaterally. Chest CT Angio PE Protocol (09/06/17): Unremarkable CT pulmonary angiogram. No pulmonary embolus. Bilateral pleural effusions right larger than left. Compressive atelectasis right lower lobe. Echocardiogram (09/06/17): Normal LV systolic function. Normal chamber size. Mild TR. LVEF 65% Patient is stable for discharge home. Please follow up with PMD in 1-2 weeks. Please follow up with nephrology Dr. Ahumada's office. Please return to the emergency department if symptoms worsen or return. This is a summary of the patient's hospital course, please refer to full EMR for further information. Patient discharged with the following medications Metformin 500mg PO BID (7am and 7pm) #60 Januvia 100mg PO QD (7am) #30 Glyburide 1.25mg PO QD (1pm), #30 Aspirin 81 mg PO QD (7 am) #30 Plavix 75mg PO QD (7am) #30 Ferrous Sulfate 325 mg PO QD (1pm) #30 Atorvastatin 10mg PO QD (7pm) #30 Lasix 40mg PO QD (7am and 1pm) #60 Hydralazine 50mg PO TID (1pm) #30 Labetalol #200 mg PO BID (7am 7pm) #60 Zestril 30mg PO QD (1pm) #30 Clonidine 0.3 mg PO TID (7am, 1 pm, 7 pm) #90 Levemir 15 u SC QHS (10pm) #1 bottle Patient was discharged with prescription for physical therapy. Schedule f/u with plant general manager Dr. Ahumada in 7 days to go over Kidney ultrasound (Renal Artery duplex) Schedule f/u with primary physician Dr. Loomis for coordination of your case. You will need a colonoscopy referral from Dr. Loomis Only take the edications for which you were given a prescription for at the time of discharge - Date & Time of H&P Date of H&P: 09/09/17 Time of H&P: 09:10 Discharge Exam - Additional Findings Additional findings: - Constitutional Appears: Non-toxic, No Acute Distress - Head Exam Head Exam: ATRAUMATIC, NORMAL INSPECTION, NORMOCEPHALIC - Eye Exam Eye Exam: EOMI, Normal appearance - ENT Exam ENT Exam: Mucous Membranes Moist, Normal Oropharynx - Neck Exam Neck exam: Positive for: Full Rom. Negative for: Lymphadenopathy, Tenderness, Thyromegaly - Respiratory Exam Respiratory Exam: Decreased Breath Sounds (on the right), NORMAL BREATHING PATTERN. absent: Clear to Auscultation Bilateral, Rales - Cardiovascular Exam Cardiovascular Exam: REGULAR RHYTHM, +S1, +S2, Systolic Murmur. absent: Bradycardia, Tachycardia - GI/Abdominal Exam GI & Abdominal Exam: Normal Bowel Sounds, Soft. absent: Organomegaly, Rebound, Rigid, Tenderness - Extremities Exam Extremities exam: Positive for: full ROM, normal capillary refill, normal inspection, pedal edema (2+ pitting edema bilaterally at the bilateral feet), pretibial pitting edema resolved, pedal pulses present. Negative for: tenderness - Back Exam Back exam: FULL ROM, NORMAL INSPECTION - Neurological Exam Neurological exam: Alert, CN II-XII Intact, Normal Gait, Oriented x3 - Psychiatric Exam Psychiatric exam: Normal Affect, Normal Mood - Skin Skin Exam: Dry, Intact, Normal Color, Warm Discharge Plan - Discharge Medications Prescriptions: Aspirin [Aspirin Chewable] 81 mg PO DAILY #30 chew Atorvastatin [Lipitor] 10 mg PO DIN #30 tab cloNIDine [Catapres] 0.3 mg PO TID #90 tab Clopidogrel [Plavix] 75 mg PO DAILY #30 tab Ferrous Sulfate [Feosol] 325 mg PO DAILY #30 tab Furosemide [Lasix] 40 mg PO BID #60 tablet Glyburide [Micronase] 1 tab PO DAILY #30 tab hydrALAZINE [Apresoline] 50 mg PO TID #90 tab Insulin Detemir [Levemir] 15 units SC HS #1 bottle Labetalol [Trandate] 200 mg PO BID #60 tab Lisinopril [Zestril] 40 mg PO DAILY #30 tab metFORMIN [glucOPHAGE] 500 mg PO BID #60 tab SITagliptin [Januvia] 100 mg PO DAILY #30 tab - Follow Up Plan Condition: FAIR Disposition: HOME/ ROUTINE Instructions: Heart Failure (DC), Pacemaker (DC), Pulmonary Edema (DC), Renal Failure Diet (DC), Ascites (DC) Additional Instructions: Patient discharged with the following medications Metformin 500mg PO BID (7am and 7pm) #60 Januvia 100mg PO QD (7am) #30 Glyburide 1.25mg PO QD (1pm), #30 Aspirin 81 mg PO QD (7 am) #30 Plavix 75mg PO QD (7am) #30 Ferrous Sulfate 325 mg PO QD (1pm) #30 Atorvastatin 10mg PO QD (7pm) #30 Lasix 40mg PO QD (7am and 1pm) #60 Hydralazine 50mg PO TID (1pm) #30 Labetalol #200 mg PO BID (7am 7pm) #60 Zestril 30mg PO QD (1pm) #30 Clonidine 0.3 mg PO TID (7am, 1 pm, 7 pm) #90 Levemir 15 u SC QHS (10pm) #1 bottle Schedule f/u with plant general manager Dr. Ahumada in 7 days to go over Kidney ultrasound (Renal Artery duplex) Schedule f/u with primary physician Dr. Loomis for coordination of your case. You will need a colonoscopy referral from Dr. Loomis Only take the medications for which you were given a prescription for at the time of discharge Referrals: Harshal Ahumdaa MD [Staff Provider] - Sagar Conroy MD [Staff Provider] - <Riley Mason - Last Filed: 09/09/17 19:29> Provider - Provider Date of Admission: 09/06/17 16:16 Attending physician: Jovon Kilgore DO Time Spent in preparation of Discharge (in minutes): 40 Hospital Course - Lab Results Lab Results: Micro Results 09/07/17 15:15 Body Fluid - Pleural Fluid Gram Stain - Final 09/07/17 15:15 Body Fluid - Pleural Fluid Body Fluid Culture - Preliminary NO GROWTH AFTER 2 DAYS 09/07/17 15:15 Other: Please Indicate Mycobacterial Culture - Preliminary 09/07/17 15:16 Pleural Fluid Fungal Culture - Preliminary Most Recent Lab Values WBC 5.7 K/uL (4.8-10.8) 09/09/17 06:30 RBC 3.92 Mil/uL (4.40-5.90) L 09/09/17 06:30 Hgb 10.8 g/dL (12.0-18.0) L 09/09/17 06:30 Hct 31.6 % (35.0-51.0) L 09/09/17 06:30 MCV 80.8 fL (80.0-94.0) 09/09/17 06:30 MCH 27.6 pg (27.0-31.0) 09/09/17 06:30 MCHC 34.2 g/dL (33.0-37.0) 09/09/17 06:30 RDW 15.2 % (11.5-14.5) H 09/09/17 06:30 Plt Count 190 K/uL (130-400) 09/09/17 06:30 MPV 11.3 fL (7.2-11.7) 09/09/17 06:30 Neut % (Auto) 55.0 % (50.0-75.0) 09/09/17 06:30 Lymph % (Auto) 27.3 % (20.0-40.0) 09/09/17 06:30 [place] % (Auto) 10.1 % (0.0-10.0) H 09/09/17 06:30 Eos % (Auto) 6.3 % (0.0-4.0) H 09/09/17 06:30 Baso % (Auto) 1.3 % (0.0-2.0) 09/09/17 06:30 Neut # (Auto) 3.1 K/uL (1.8-7.0) 09/09/17 06:30 Lymph # (Auto) 1.5 K/uL (1.0-4.3) 09/09/17 06:30 [place] # (Auto) 0.6 K/uL (0.0-0.8) 09/09/17 06:30 Eos # (Auto) 0.4 K/uL (0.0-0.7) 09/09/17 06:30 Baso # (Auto) 0.1 K/uL (0.0-0.2) 09/09/17 06:30 Differential Comment 09/09/17 06:30 Retic Count 1.3 % (0.5-1.5) 09/07/17 04:15 Haptoglobin 100.0 mg/dL (30.0-200.0) 09/07/17 04:00 PT 14.8 SECONDS (9.7-12.2) H 09/06/17 14:50 INR 1.4 09/06/17 14:50 APTT 37 SECONDS (21-34) H 09/06/17 14:50 D-Dimer, Quantitative 694 ng/mlDDU (0-243) H 09/06/17 14:50 Sodium 141 mmol/L (132-148) 09/09/17 06:30 Potassium 4.1 mmol/L (3.6-5.2) 09/09/17 06:30 Chloride 104 mmol/L (98-107) 09/09/17 06:30 Carbon Dioxide 27 mmol/L (22-30) 09/09/17 06:30 Anion Gap 14 (10-20) 09/09/17 06:30 BUN 18 mg/dL (9-20) 09/09/17 06:30 Creatinine 1.4 mg/dL (0.8-1.5) 09/09/17 06:30 Est GFR ( Amer) > 60 09/09/17 06:30 Est GFR (Non-Af Amer) 51 09/09/17 06:30 POC Glucose (mg/dL) 201 mg/dL (65-110) H 09/09/17 11:14 Random Glucose 205 mg/dL (75-110) H 09/09/17 06:30 Hemoglobin A1c 7.0 % (4.2-6.5) H 09/07/17 04:36 Calcium 9.0 mg/dl (8.6-10.4) 09/09/17 06:30 Phosphorus 5.0 mg/dL (2.5-4.5) H 09/09/17 06:30 Magnesium 1.9 mg/dL (1.6-2.3) 09/09/17 06:30 Iron 41 ug/dL (49-181) L 09/07/17 04:15 TIBC 274 ug/dL (250-450) 09/07/17 04:15 % Saturation 15 (20-55) L 09/07/17 04:15 Ferritin 50.4 ng/mL 09/07/17 04:15 Total Bilirubin 0.4 mg/dL (0.2-1.3) 09/09/17 06:30 Direct Bilirubin 0.2 mg/dL (0.0-0.4) 09/07/17 04:15 AST 56 U/L (17-59) 09/09/17 06:30 ALT 78 U/L (21-72) H 09/09/17 06:30 Alkaline Phosphatase 70 U/L (38-126) 09/09/17 06:30 Lactate Dehydrogenase 640 U/L (313-618) H 09/07/17 04:15 Total Creatine Kinase 307 U/L (55-170) H 09/08/17 07:43 CK-MB (Mass) 3.01 ng/mL (0.0-3.38) 09/08/17 07:43 Troponin I 0.0660 ng/mL (0.00-0.120) 09/07/17 04:15 NT-Pro-B Natriuret Pep 2380 pg/mL (0-900) H 09/06/17 20:50 Total Protein 6.6 g/dL (6.3-8.3) 09/09/17 06:30 Albumin 3.2 g/dL (3.5-5.0) L 09/09/17 06:30 Globulin 3.4 gm/dL (2.2-3.9) 09/09/17 06:30 Albumin/Globulin Ratio 0.9 (1.0-2.1) L 09/09/17 06:30 Triglycerides 98 mg/dL (0-149) 09/07/17 04:15 Cholesterol 107 mg/dL (0-199) 09/07/17 04:15 LDL Cholesterol Direct 54 mg/dL (0-129) 09/07/17 04:15 HDL Cholesterol 29 mg/dL (30-70) L 09/07/17 04:15 Methylmalonic Acid 164 nmol/L (87-318) 09/07/17 07:19 Homocysteine 9.4 umol/L (6.6-14.8) 09/07/17 04:15 PTH Intact Whole Molec 67 pg/mL (14-64) H 09/08/17 07:43 Urine Color Yellow (YELLOW) 09/06/17 15:18 Urine Clarity Clear (Clear) 09/06/17 15:18 Urine pH 5.0 (5.0-8.0) 09/06/17 15:18 Ur Specific [place] 1.006 (1.003-1.030) 09/06/17 15:18 Urine Protein 2+ mg/dL (NEGATIVE) H 09/06/17 15:18 Urine Glucose (UA) Normal mg/dL (Normal) 09/06/17 15:18 Urine Ketones Negative mg/dL (NEGATIVE) 09/06/17 15:18 Urine Blood Negative (NEGATIVE) 09/06/17 15:18 Urine Nitrate Negative (NEGATIVE) 09/06/17 15:18 Urine Bilirubin Negative (NEGATIVE) 09/06/17 15:18 Urine Urobilinogen Normal mg/dL (0.2-1.0) 09/06/17 15:18 Ur Leukocyte Esterase Neg Adriana/uL (Negative) 09/06/17 15:18 Urine WBC (Auto) < 1 /hpf (0-5) 09/06/17 15:18 Urine RBC (Auto) < 1 /hpf (0-3) 09/06/17 15:18 Ur Squamous Epith Cells < 1 /hpf (0-5) 09/06/17 15:18 Urine Bacteria Rare (<OCC) 09/06/17 15:18 Fluid Source Pleural 09/07/17 15:15 Fluid Appearance Sl cloudy (CLEAR) 09/07/17 15:15 Fluid WBC 631.0 /mm3 (0.0-300.0) H 09/07/17 15:15 Fluid RBC 1382.0 /mm3 (0.0-0.0) H 09/07/17 15:15 Fluid Tot Cell Count 100 (0-0) H 09/07/17 15:15 Fluid Neutrophils 2.0 % (0-0) H 09/07/17 15:15 Fluid Lymphocytes 95.0 % (0-0) H 09/07/17 15:15 Fld Monocyte/Macrophag 3 % (0-0) H 09/07/17 15:15 Fluid Comment 09/07/17 15:15 Stool Occult Blood Negative (NEGATIVE) 09/06/17 19:49 Parietal Cell Ab Titer 1:20 Titer (< 1:20) H 09/07/17 07:19 Anti-Parietal Cell Ab Positive (Negative) H 09/07/17 07:19 Intrins Factor Block Ab Negative (Negative) 09/07/17 07:19 Hepatitis A IgM Ab Negative (NEGATIVE) 09/07/17 04:00 Hep Bs Antigen Negative (NEGATIVE) 09/07/17 04:00 Hep B Core IgM Ab Negative (NEGATIVE) 09/07/17 04:00 Hepatitis C Antibody Negative (NEGATIVE) 09/07/17 04:00 HIV 1&2 Ag/Ab, 4th Gen Nonreactive (Nonreactive) 09/07/17 07:20 Attending/Attestation - Attestation I have personally seen and examined this patient.: Yes I have fully participated in the care of the patient.: Yes I have reviewed all pertinent clinical information, including history, physical exam and plan: Yes Notes (Text): 09/09/17 19:25 Patient was seen and examined at 11:00 AM Exam, assessment and plan were gone over with the resident. Discharge instructions were gone over with the patient, his son, and his brother at the time of exam. Please note that instructions for taking Hydralazine 50 mg PO TID are at 7 AM, 1 PM, and 7 PM. I called patient son [phone] and explained to him these corrected instructions and he expressed understanding. Patient son will be coming by tomorrow 09/10/17 to cloth picker Rx stating patient may continue his PT for his history of CVA. Riley Mason D.O.
--- NOTE | 2017-09-09 10:44 | US ---
PROCEDURE: Date of procedure: 09/07/2017 Procedure: 1. Ultrasound-guided Right thoracentesis, CPT 30240 Medications: 6 cc 1% Lidocaine HISTORY: Right pleural effusion, shortness of breath TECHNIQUE: Following informed consent ,the Patients' right chest was marked. Procedure time-out was called, and the patient was placed in the sitting position and limited ultrasound showed a large right effusion. The patient's right back was prepped and draped in the usual sterile fashion. After the skin was anesthetized with lidocaine, a drainage catheter was advanced under ultrasound guidance into the pleural space. Ultrasound-guided thoracentesis was performed. A total of 600 cubic centimeters of straw-colored fluid removed without complication. A Xeroform dressing was applied. IMPRESSION: Ultrasound guided Right thoracentesis. There were no immediate complications.
[2017-09-09 10:48] VITALS: BP 120/65
[2017-09-09] MEDS: Ferric Sodium Gluconat Complex 62.5 mg/5 ml Vial IVPB SCH (10:49)
--- NOTE | 2017-09-09 12:44 | CP.PCM.PN ---
Subjective - Date & Time of Evaluation Date of Evaluation: 09/09/17 Time of Evaluation: 12:42 - Subjective Subjective: Alert, feels much better Lasix switched to po BP well controlled now HTN workup and protein excretion rate still not back Likely for discharge as pt doing well now Objective - Vital Signs/Intake and Output Vital Signs (last 24 hours): Temp Pulse Resp BP Pulse Ox 98.2 F 58 L 20 120/65 99 09/09/17 08:00 09/09/17 08:00 09/09/17 08:00 09/09/17 10:47 09/09/17 08:00 Intake and Output: 09/09/17 09/09/17 06:59 18:59 Output Total 320 Balance -320 - Medications Medications: Current Medications Aspirin (Aspirin Chewable) 81 mg PO DAILY [facility] Last Admin: 09/09/17 10:48 Dose: 81 mg Clonidine HCl (Catapres) 0.3 mg PO TID [facility] Last Admin: 09/09/17 11:00 Dose: 0.3 mg Clopidogrel Bisulfate (Plavix) 75 mg PO DAILY [facility] Last Admin: 09/09/17 10:47 Dose: 75 mg Dextrose (Dextrose 50% Inj) 0 ml IV STAT PRN; Protocol PRN Reason: Hypoglycemia Protocol Dextrose (Glutose 15) 0 gm PO ONCE PRN; Protocol PRN Reason: Hypoglycemia Protocol Ferric Sodium Gluconate Complex (Ferrlecit) 125 mg IVPB DAILY [facility] Stop: 09/16/17 10:16 Last Admin: 09/09/17 10:49 Dose: 125 mg Furosemide (Lasix) 40 mg PO BID [facility] Last Admin: 09/09/17 10:47 Dose: 40 mg Glucagon (Glucagen Diagnostic Kit) 0 mg IM STAT PRN; Protocol PRN Reason: Hypoglycemia Protocol Heparin Sodium (Porcine) (Heparin) 5,000 units SC Q8 [facility] Last Admin: 09/09/17 05:22 Dose: 5,000 units Hydralazine HCl (Apresoline) 50 mg PO TID [facility] Last Admin: 09/09/17 10:48 Dose: 50 mg Dextrose (Dextrose 5% In Water 1000 Ml) 1,000 mls @ 0 mls/hr IV .Q0M PRN; Protocol; Per Protocol PRN Reason: Hypoglycemia Protocol Cefazolin Sodium 2,000 mg/ (Sodium Chloride) 50 mls @ 100 mls/hr IVPB MWF [facility] PRN Reason: Protocol Last Admin: 09/09/17 10:00 Dose: 100 mls/hr Insulin Human Regular (Novolin R) 0 unit SC ACHS [facility] PRN Reason: Protocol Last Admin: 09/09/17 12:30 Dose: 2 unit Labetalol HCl (Trandate) 200 mg PO BID [facility] Last Admin: 09/09/17 10:48 Dose: 200 mg Lisinopril (Zestril) 40 mg PO DAILY [facility] Last Admin: 09/09/17 10:49 Dose: 40 mg Rosuvastatin Calcium (Crestor) 5 mg PO HS [facility] Last Admin: 09/08/17 21:22 Dose: 5 mg Sitagliptin Phosphate (Januvia) 100 mg PO DAILY [facility] Last Admin: 09/09/17 10:48 Dose: 100 mg - Labs Labs: 09/09/17 06:30 09/09/17 06:30 PT 14.8 SECONDS (9.7-12.2) H 09/06/17 14:50 INR 1.4 09/06/17 14:50 APTT 37 SECONDS (21-34) H 09/06/17 14:50 - Constitutional Appears: No Acute Distress, Chronically Ill - Head Exam Head Exam: ATRAUMATIC, NORMAL INSPECTION - Eye Exam Eye Exam: EOMI, Normal appearance - Neck Exam Neck Exam: Normal Inspection. absent: Tenderness - Respiratory Exam Respiratory Exam: Clear to Ausculation Bilateral, NORMAL BREATHING PATTERN - Cardiovascular Exam Cardiovascular Exam: REGULAR RHYTHM, +S1 - GI/Abdominal Exam GI & Abdominal Exam: Soft. absent: Tenderness - Extremities Exam Extremities Exam: Normal Inspection. absent: Tenderness - Neurological Exam Neurological Exam: Awake, CN II-XII Intact - Skin Skin Exam: Dry, Warm Assessment and Plan (1) Pleural effusion Status: Acute (2) CKD (chronic kidney disease) stage 3, GFR 30-59 ml/min Status: Chronic (3) Hypertensive chronic kidney disease with stage 1 through stage 4 chronic kidney disease, or unspecified chronic kidney disease Status: Acute (4) CHF (congestive heart failure) Status: Resolved - Assessment and Plan (Free Text) Plan: Same meds likely discharge now can obtain workup results as outpt
--- NOTE | 2017-09-09 13:34 | VASCLAB ---
PROCEDURE: Ultrasonography renal arterial evaluation HISTORY: Renovascular Hypertension COMPARISON: None available. TECHNIQUE: Real-time ultrasonography evaluation of the renal arteries were performed. Comparison is made to the aorta. Report prepared by SYLVIA Snyder, RVT FINDINGS: AORTA: Patent. Peak systolic velocity 142 centimeters/second RIGHT RENAL ARTERY: Renal artery to aorta ratio: 1.1 * Proximal segment: Patent. Peak systolic velocity 145 centimeters/second * Mid segment: Patent. Peak systolic velocity 163 centimeters/second * Distal segment: Patent. Peak systolic velocity 132 centimeters/second Other findings: Right Kidney measures approximately 12.99 centimeters. LEFT RENAL ARTERY: Renal artery to aorta ratio: 1.2 * Proximal segment: Patent. Peak systolic velocity 177 centimeters/second * Mid segment: Patent. Peak systolic velocity 156 centimeters/second * Distal segment: Patent. Peak systolic velocity 121 centimeters/second Other findings: Left Kidney measures approximately 13.89 centimeters. IMPRESSION: No definite hemodynamically significant stenosis involving the renal arteries as visualized.
[2017-09-09 14:17] LABS: PARIETAL CELL AB TITER 1:20 Titer (< 1:20)
--- NOTE | 2017-09-09 17:05 | CARD ---
APPROVED REPORT EKG Measurement Heart [id number] <Conclusion> Normal sinus rhythm Low voltage QRS Abnormal ECG
--- NOTE | 2017-09-09 17:09 | CARD ---
APPROVED REPORT EKG Measurement Heart [id number] <Conclusion> Sinus bradycardia Abnormal ECG
[2017-09-09 17:31] LABS: METHYLMALONIC ACID,SERUM 164 nmol/L (87-318)
[2017-09-09 23:16] LABS: LDH PLEURAL FLUID 90 U/L; TOTAL PROTEIN PLEURAL FLUID <3.0 g/dL
[2017-09-11 01:20] LABS: TOTAL VOLUME 2525 mL/24 h
--- NOTE | 2017-09-12 09:47 | PCM.HF ---
Heart Failure Core Measure - Heart Failure Ejection Fraction: 40 % or Greater GUSTAVO Inhibitor Prescribed: Yes Beta-Tom Prescribed: None Contraindication/Reason for not providing: labetolol Angiotensin II Receptor Tom Prescribed: No Contraindication/Reason for not providing: gustavo AnticoagulationTherapy for Atrial Fibrillation/Atrialflutter: No Contraindication/Reason for not providing: no hx of afib Aldosterone Antagonist Prescribed: No Contraindication/Reason for not providing: EF IS GREATER THAN 40 Implantable Cardioverter Defibrillator Therapy: No Contraindication/Reason for not providing: EF IS GREATER THAN 40 Cardiac Resynchronization Therapy Prescribed: No Contraindication/Reason for not providing: NO CLINICAL INDICATION - Follow up Will be discharged to: Home Follow Up Date (must be within 7 days from discharge): 09/15/17 Follow Up Time: 09:00
== END 2017-09-09 16:16 | disposition home or self-care (01) | DRG 291 ==
LOC: C.ER 13:24 → C.9E 16:16 → C.5S 17:15
PROVIDERS: ADMIT Hospitalist; ATTEND Hospitalist
PROC: 0W993ZX Drainage of Right Pleural Cavity, Percutaneous Approach, Diagnostic (ICD-10-PCS; principal; 2017-09-07)
DX: I13.0 Hypertensive heart and chronic kidney disease with heart failure and stage 1 through stage 4 chronic kidney disease, or unspecified chronic kidney disease (principal); I50.33 Acute on chronic diastolic (congestive) heart failure; J98.11 Atelectasis; I69.354 Hemiplegia and hemiparesis following cerebral infarction affecting left non-dominant side; J90 Pleural effusion, not elsewhere classified; D64.9 Anemia, unspecified; E11.22 Type 2 diabetes mellitus with diabetic chronic kidney disease; N18.3 Chronic kidney disease, stage 3 (moderate); E78.00 Pure hypercholesterolemia, unspecified; Z87.891 Personal history of nicotine dependence; R79.1 Abnormal coagulation profile; Z79.4 Long term (current) use of insulin